=== PATIENT | male | born 1955 | race Caucasian/White ===

== ENCOUNTER 2016-07-19 08:14 | Inpatient (IN) ==
--- NOTE | 2016-07-19 08:44 | Emergency Department Note ---
Disposition Clinical Impression: Cerebrovascular accident Qualifiers: CVA mechanism: unspecified Qualified Code(s): I63.9 - Cerebral infarction, unspecified Disposition: Admitted As Inpatient Condition: Fair Time of Disposition: 10:46 Neuro HPI - General Chief Complaint: ED Neuro Symptoms/Deficit Stated Complaint: neuro symptoms since yesterday afternoon Time Seen by Provider: 07/19/16 08:23 Source: patient, family Limitations: no limitations Nursing Notes Reviewed: Yes Vital Signs Reviewed: Yes - History of Present Illness HPI Narrative: Patient is a 60-year-old male who presents to [facility] ED with a chief complaint of left-sided facial droop and mild slurred speech. His is a nurse here who states prior to her going to work last night, she noticed a little bit of a facial droop and slurred speech. The patient himself did not feel that he had any at the time. However he did wake up this morning and thought he started noticing some facial droop as well as slurred speech as well. Denies any nausea, vomiting, fever or chills. Patient states he feels pretty good and has not had any recent illnesses. No prior history of TIAs or strokes. No prior cardiac history. His only medication is enalapril for hypertension. Onset of Symptoms Date: 07/18/16 Timing confirmed by: spouse Location: left face History of same: No Severity: mild Symptoms Improving: No Improves with: none Worsens with: none Context: gradual onset Associated symptoms: Reports: denies other symptoms. Denies: chest pain, cough , diaphoresis, fever/chills, headaches, loss of appetite, nausea/vomiting, shortness of breath, weakness Treatments Prior to Arrival: none - Related Data Home Medications: Home Medications Medication Instructions Recorded Confirmed Enalapril Maleate [Vasotec] 20 mg PO DAILY 07/19/16 07/19/16 Ibuprofen [Advil] 200 mg PO Q6H PRN 07/19/16 07/19/16 [place]-3/Dha/Epa/Fish Oil [Fish Oil 1 each PO DAILY 07/19/16 07/19/16 1,000 mg Softgel] Taurine [Pure Taurine] 500 mg PO DAILY 07/19/16 07/19/16 Allergies/Adverse Reactions: Allergies Allergy/AdvReac Type Severity Reaction Status Date / Time No Known Allergies Allergy Verified 07/19/16 08:16 All systems ED: reviewed and negative except as stated. Past Medical History - Past Medical History Attestation: Yes The following information was validated with the patient. Source: patient Medical history: Reports: hypertension - Social History Smoking Status: Never smoker Alcohol use: Reports: occasionally, recent Drug use: Reports: none Physical Exam - General Limitations: no limitations General appearance: alert, in no apparent distress - Head Head exam: atraumatic, normocephalic, normal inspection - Eye Eye exam: Present: normal appearance, PERRL, EOMI - ENT ENT exam: normal exam, normal oropharynx, mucous membranes moist - Neck Neck exam: Present: normal inspection, full ROM, trachea midline - Chest Chest inspection: Present: normal inspection, symmetric chest wall rise - Respiratory Respiratory exam: Present: normal lung sounds bilaterally - Cardiovascular Cardiovascular exam: Present: regular rate, normal rhythm, normal heart sounds - Abdominal Exam Abdominal exam: Present: soft, Non-Tender. Absent: tenderness, distention, guarding, rebound, rigidity - Extremities Exam Extremities exam: Present: normal inspection, full ROM. Absent: tenderness, pedal edema - Back Exam Back exam: Present: normal inspection, full ROM. Absent: tenderness - Neurological Exam Neurological exam: Present: alert, oriented X3 - Expanded Neurological Exam Patient oriented to: Present: person, place, time Speech: Present: fluid speech Cranial nerves: EOM function (II, III, IV, ): Normal, facial sensation (V): Normal, facial palsy (VII): Abnormal Left, spinal accessory function (XI): Normal, tongue deviation (XII): Normal Cerebellar function: finger to nose: Normal, heel to harman: Normal Cerebellar function: normal gait Motor strength - LUE: 5/5 Motor strength - RUE: 5/5 Motor strength - LLE: 5/5 Motor strength - RLE: 5/5 Upper motor neuron exam: elisabeth neglect: Absent bilaterally, pronator drift: Absent bilaterally, sensory extinction: Absent bilaterally Sensory exam upper extremity: light touch: Normal Sensory exam lower extremity: light touch: Normal Coma Scale Eye Opening: Spontaneous Coma Scale Motor Response: Obeys Commands Coma Scale Verbal Response: Oriented Coma Scale Total: 15 - Psychiatric Psychiatric exam: Present: normal affect, normal mood - Skin Skin exam: Present: warm, dry, intact, normal color Course Course Narrative: Patient seen and examined. Complaints of left-sided facial droop and mild slurred speech. Time of exact onset unknown. They noticed this yesterday evening over 12 hours ago. NIH score 2 for those 2 symptoms. There is a possibility this could be an early Deleon's palsy, however it is forehead sparing. We will go ahead and work this up as possible stroke/TIA. - Reevaluation(s) Reevaluation #1: I received a call from the radiologist who states he does see a small area of acute ischemia involving the right frontal lobe near the sylvian fissure. Labwork unremarkable. We will admit for CVA workup. I spoke with neurologist Dr. Elaine who will see the patient in consult. He would like patient to have a daily aspirin. I spoke with hospitalist Dr. Cage who has accepted patient for admission. Time: 10:44 Vital Signs Temperature 98.2 F 07/19/16 08:15 Pulse Rate 75 07/19/16 08:15 Respiratory Rate 18 07/19/16 08:15 Blood Pressure 186/97 07/19/16 08:15 O2 Sat by Pulse Oximetry 99 07/19/16 08:15 Temperature 98.4 F 07/19/16 13:36 Pulse Rate 62 07/19/16 13:36 Respiratory Rate 16 07/19/16 13:36 Blood Pressure 151/84 07/19/16 13:36 O2 Sat by Pulse Oximetry 96 07/19/16 13:49 Oxygen Delivery Oxygen Delivery Room Air Neuro Symptoms/Deficit - Medical Records Medical records reviewed: Yes I reviewed the patient's medical records. - Lab Data Lab results reviewed: Yes I reviewed the patient's lab results. Result diagrams: 07/19/16 16:08 07/19/16 09:12 Lab Results 07/19/16 07/19/16 07/19/16 Range/Units 08:28 09:12 09:12 WBC 4.4 (4.3-11.1) K/mcL RBC 4.80 (4.19-5.50) M/mcL Hgb 15.5 (12.9-16.9) g/dL Hct 43.9 (37.5-50.1) % MCV 91.5 (83.0-100.0) fL MCH 32.3 (28.0-33.3) pg MCHC 35.3 (31.6-35.5) g/dL RDW 12.1 (11.5-14.5) % Plt Count 179 (140-400) K/mcL MPV 8.3 L (9.4-12.4) fL Immature Gran % 0.2 (0-4) % Seg Neutrophils % 53.1 % Lymphocytes % 36.7 % Monocytes % 8.6 % Eosinophils % 0.9 % Basophils % 0.5 % Neutrophils # 2.4 (1.6-8.9) K/mcL Lymphocytes # 1.6 (0.6-4.6) K/mcL Monocytes # 0.4 (0.0-1.3) K/mcL Eosinophils # 0.0 (0.0-0.6) K/mcL Basophils # 0.0 (0.0-0.2) K/mcL PT 10.7 (9.4-12.1) Seconds INR 1.0 APTT 28.6 (26.0-36.0) Seconds Sodium (136-145) mEq/L Potassium (3.5-4.5) mEq/L Chloride (98-109) mEq/L Carbon Dioxide (19-29) mEq/L BUN (8-26) mg/dL Creatinine (0.72-1.25) mg/dL Est GFR ( Amer) (> 60) Est GFR (Non-Af Amer) (> 60) BUN/Creatinine Ratio (6-26) Glucose (70-99) mg/dL POC Glucose 101 H (58-89) Est Mean Plasma Glucose mg/dl Hemoglobin A1c ( - 5.6) % Calculated Osmolality (280-300) Calcium (8.6-10.8) mg/dL Troponin I (0-0.03) ng/mL TSH (0.350-4.840) mcIU/mL 07/19/16 07/19/16 07/19/16 Range/Units 09:12 09:12 09:12 WBC (4.3-11.1) K/mcL RBC (4.19-5.50) M/mcL Hgb (12.9-16.9) g/dL Hct (37.5-50.1) % MCV (83.0-100.0) fL MCH (28.0-33.3) pg MCHC (31.6-35.5) g/dL RDW (11.5-14.5) % Plt Count (140-400) K/mcL MPV (9.4-12.4) fL Immature Gran % (0-4) % Seg Neutrophils % % Lymphocytes % % Monocytes % % Eosinophils % % Basophils % % Neutrophils # (1.6-8.9) K/mcL Lymphocytes # (0.6-4.6) K/mcL Monocytes # (0.0-1.3) K/mcL Eosinophils # (0.0-0.6) K/mcL Basophils # (0.0-0.2) K/mcL PT (9.4-12.1) Seconds INR APTT (26.0-36.0) Seconds Sodium 139 (136-145) mEq/L Potassium 4.4 (3.5-4.5) mEq/L Chloride 106 (98-109) mEq/L Carbon Dioxide 25 (19-29) mEq/L BUN 15 (8-26) mg/dL Creatinine 1.03 (0.72-1.25) mg/dL Est GFR ( Amer) > 60 (> 60) Est GFR (Non-Af Amer) > 60 (> 60) BUN/Creatinine Ratio 15 (6-26) Glucose 109 H (70-99) mg/dL POC Glucose (58-89) Est Mean Plasma Glucose 105 mg/dl Hemoglobin A1c 5.3 ( - 5.6) % Calculated Osmolality 289 (280-300) Calcium 10.1 (8.6-10.8) mg/dL Troponin I 0.02 (0-0.03) ng/mL TSH 1.844 (0.350-4.840) mcIU/mL 07/19/16 07/19/16 Range/Units 16:08 16:08 WBC 5.2 (4.3-11.1) K/mcL RBC 4.72 (4.19-5.50) M/mcL Hgb 15.4 (12.9-16.9) g/dL Hct 43.2 (37.5-50.1) % MCV 91.5 (83.0-100.0) fL MCH 32.6 (28.0-33.3) pg MCHC 35.6 H (31.6-35.5) g/dL RDW 12.2 (11.5-14.5) % Plt Count 189 (140-400) K/mcL MPV 8.4 L (9.4-12.4) fL Immature Gran % (0-4) % Seg Neutrophils % % Lymphocytes % % Monocytes % % Eosinophils % % Basophils % % Neutrophils # (1.6-8.9) K/mcL Lymphocytes # (0.6-4.6) K/mcL Monocytes # (0.0-1.3) K/mcL Eosinophils # (0.0-0.6) K/mcL Basophils # (0.0-0.2) K/mcL PT 11.3 (9.4-12.1) Seconds INR 1.0 APTT 27.8 (26.0-36.0) Seconds Sodium (136-145) mEq/L Potassium (3.5-4.5) mEq/L Chloride (98-109) mEq/L Carbon Dioxide (19-29) mEq/L BUN (8-26) mg/dL Creatinine (0.72-1.25) mg/dL Est GFR ( Amer) (> 60) Est GFR (Non-Af Amer) (> 60) BUN/Creatinine Ratio (6-26) Glucose (70-99) mg/dL POC Glucose (58-89) Est Mean Plasma Glucose mg/dl Hemoglobin A1c ( - 5.6) % Calculated Osmolality (280-300) Calcium (8.6-10.8) mg/dL Troponin I (0-0.03) ng/mL TSH (0.350-4.840) mcIU/mL - Radiology Data Radiology results reviewed: Yes I reviewed the patient's radiology results. Head CT 07/19/16 08:58 IMPRESSION: Findings concerning for small area of acute ischemia involving right frontal lobe towards the region of the sylvian fissure in left MCA distribution. No acute intracranial hemorrhage or midline shift. Area of old infarct/insult to right cerebellar hemisphere. Critical results were called by Dr. Melchor David MD to Елена Ashley on 07/19/2016 at 10:02. D/ / 07/19/2016 10:02:37 Melchor David MD / Kym Garner Interpreting Provider: Melchor David MD - EKG Data EKG attestation: Yes I reviewed and interpreted this EKG. EKG results narrative: EKG done at 826 shows normal sinus rhythm with a rate of [address] elevation or depression. Left axis deviation. Inverted T waves in lead 3. NIH Stroke Scale - Level of Consciousness LOC: Alert - LOC Questions LOC Questions: Answers both correctly - LOC Commands LOC Commands: Performs both correctly - Best Gaze Best Gaze: Normal - Visual Visual: No visual loss - Facial Palsy Facial Palsy: Minor asymmetry on smiling, flattened nasolabial fold - Motor Arms Motor Arm-Left: No drift for 10 seconds Motor Arm-Right: No drift for 10 seconds - Motor Legs Motor Leg-Left: No drift for 5 seconds Motor Leg-Right: No drift for 5 seconds - Limb Ataxia Limb Ataxia: Normal, No Ataxia - Sensory Sensory: Normal - Best Language Best Language: No aphasia - Dysarthria Dysarthria: Mild, slurs some words - Extinction and Inattention Extinction and Inattention: Normal - NIHSS Total Score NIHSS Total Score: 2 Attestation Statement - Attestation Attestation: I, Jason Mendosa, examined this patient and my medical decision-making was reviewed with the CAFETERIA SUPERVISOR/PA/Advanced Practice Nurse/Resident Physician. I agree with the documented findings, disposition and treatment plan as described except to the extent set forth below. 60-year-old male presents with concerns of left facial droop and slurred speech. Patient states his noticed symptoms last night prior to going to bed, he noticed they are still present this morning upon her return from her work shift. Patient has not had a history of CVA in the past. No recent injury or changes in his medications. No recent tick bites. No history of Deleon 's palsy. On physical examination the patient has left lower facial droop and mild slurred speech but does not have any other focal neurologic deficits on exam. CT obtained which shows a mild area of ischemia which could correlate to the patient's symptoms. Resident spoke with the neurologist who agreed with plan for admission to the hospital.
[2016-07-19 09:20] LABS: Basophils % 0.5 %; Eosinophils % 0.9 %; Hematocrit 43.9 % (37.5-50.1); Hemoglobin 15.5 g/dL (12.9-16.9); Immature Granulocytes % 0.2 % (0-4); Lymphocytes # 1.6 K/mcL (0.6-4.6); Lymphocytes % 36.7 %; Mean Corpuscular HGB Conc 35.3 g/dL (31.6-35.5); Mean Corpuscular Hemoglobin 32.3 pg (28.0-33.3); Mean Corpuscular Volume 91.5 fL (83.0-100.0); Mean Platelet Volume 8.3 fL (9.4-12.4); Monocytes # 0.4 K/mcL (0.0-1.3); Monocytes % 8.6 %; Neutrophils # 2.4 K/mcL (1.6-8.9); Platelet Count 179 K/mcL (140-400); Red Cell Distribution Width 12.1 % (11.5-14.5); Segmented Neutrophils % 53.1 %
[2016-07-19 09:26] LABS: Prothrombin Time 10.7 Seconds (9.4-12.1)
[2016-07-19 09:28] LABS: Activated Partial Thrombo Time 28.6 Seconds (26.0-36.0)
[2016-07-19 09:31] LABS: BUN/Creatinine Ratio 15 (6-26); Blood Urea Nitrogen 15 mg/dL (8-26); Calcium 10.1 mg/dL (8.6-10.8); Carbon Dioxide 25 mEq/L (19-29); Chloride 106 mEq/L (98-109); Glucose 109 mg/dL (70-99); Osmolality,Calculated 289 (280-300); Potassium 4.4 mEq/L (3.5-4.5); Sodium 139 mEq/L (136-145); eGFR For African Americans > 60 (> 60); eGFR For Non-African Americans > 60 (> 60)
[2016-07-19] MEDS ORDERED: Aspirin 81 MG TAB.CHEW PO STA (10:09)
[2016-07-19] MEDS ORDERED: Naloxone 0.4 MG/ML INJ IVP PRN (10:53)
--- NOTE | 2016-07-19 11:27 | Internal Med History&Physical ---
<HoustonZackaryPricila J - Last Filed: 07/19/16 12:29> Date of Encounter: 07/19/16 Time of Encounter: 11:27 Assessment and Plan (1) Cerebrovascular accident Current visit: Yes Status: Acute presented with slurred speech and left facial droop that started evening prior to admission. Head CT with small area of acute ischemia to right frontal lobe. Received ASA in ED. Brain MRI, echo, carotid dopplers, TSH, LDL and Hgb A1c pending. Allow for permissive HTN, resume BP medications 07/20/2016. Neurology consulted in ED Qualifiers: CVA mechanism: unspecified Qualified Code(s): I63.9 - Cerebral infarction, unspecified (2) Essential hypertension Current visit: Yes Status: Acute per hx. Holding BP medications to allow for permissive HTN. (3) DVT prophylaxis Current visit: Yes Status: Acute lovenox Internal Medicine - H&P: HPI Chief complaint: left facial droop and slurred speech Plans for Post Hospital Care: Home History of present illness: Mr. Greco is a 60 year old male with PMH HTN who presented to [facility] on 2016 with complaints of left facial droop and slurred speech. Head CT showed and acute infarct and he was admitted for complete CVA work-up. Information obtained from chart review and patient report. Patient tells me his noticed his sx's when he came in from working in the yard. He feels sx's are a little better now. Denies numbness/tingling, no vision changes, no headaches. Past Med Surg Social Fam HX - Past Medical History Medical history: hypertension - Past Surgical History Surgical History: no surgical history - Social History Smoking Status: Never smoker Alcohol use: occasionally, recent Drug use: none - Family History Father Hx Family Neurologic Disorders: Yes (CVA) Mother Hx Family Neuromuscular Disorders: Yes (CVA) Internal Medicine - H&P: Meds Enalapril Maleate [Vasotec] 20 mg PO DAILY 07/19/16 [History] Ibuprofen [Advil] 200 mg PO Q6H PRN 07/19/16 [History] [place]-3/Dha/Epa/Fish Oil [Fish Oil 1,000 mg Softgel] 1 each PO DAILY 07/19/16 [ History] Taurine [Pure Taurine] 500 mg PO DAILY 07/19/16 [History] Allergies No Known Allergies Allergy (Verified 07/19/16 08:16) All Systems PM: A 10-system review of systems was performed and is negative for pertinent findings except as documented above in the HPI. - Constitutional Constitutional: no chills, no fever(s), no night sweats - EENT Eyes: no change in vision, no discharge, no pain, no photophobia Ears: no ear discharge, no ear pain, no tinnitus Nose, mouth and throat: no dysphagia, no nasal discharge, no neck pain, no sore throat - Cardiovascular Cardiovascular ROS IM: no chest pain, no diaphoresis, no dyspnea, no lightheadedness, no palpitations, no syncope - Respiratory Respiratory: no cough, no dyspnea, no wheezing, no excessive phlegm production - Gastrointestinal Gastrointestinal: no abdominal pain, no diarrhea, no hematemesis, no hematochezia, no melena, no nausea, no vomiting - Musculoskeletal Musculoskeletal ROS IM: no numbness, no tingling - Integumentary Integumentary IM: no rash, no unusual bruising - Neurological Neurological ROS: no confusion, no convulsions, no focal weakness, no headache(s ), no numbness, no tingling, no tremor(s) Additional comments: slurred speech - Hematologic/Lymphatic Hematologic/Lymphatic: no easy bruising - Constitutional Vitals: Temp Pulse Resp BP Pulse Ox 98.2 F 79 16 151/77 96 07/19/16 08:15 07/19/16 10:46 07/19/16 10:46 07/19/16 10:46 07/19/16 10:46 General appearance: Present: A&O X 3, no acute distress - Head Head exam: Present: atraumatic, normocephalic - Eye Eye exam: Present: PERRL, conjuntiva pink, sclera anicteric Pupils: Present: PERRL - Neck Neck exam general surgery: Present: supple, trachea midline. Absent: lymphadenopathy - Respiratory Respiratory exam: Present: CTAB. Absent: accessory muscle use, rales, rhonchi, wheezes - Cardiovascular Cardiovascular exam: Present: RRR, +S1, +S2. Absent: diastolic murmur, gallop, rubs, systolic murmur - GI/Abdominal GI/Abdominal exam: Present: normal bowel sounds, soft, no peritoneal signs. Absent: distended, tenderness - Extremities Exam Extremities exam: Present: warm, radial pulses palpable and symetrical. Absent : calf tenderness, cyanotic, pedal edema - Neurological Exam Neurological exam: Present: CN II-XII intact, oriented X3, no focal deficits. Absent: pronater drift, facial droop, speech deficit Additional comments: left facial droop - Expanded Neurological Exam Speech: Present: slurred Coma Scale Eye Opening: Spontaneous Coma Scale Motor Response: Obeys Commands Coma Scale Verbal Response: Oriented Coma Scale Total: 15 - Skin Skin exam: Present: dry, intact Internal Med - H&P Results - Labs CBC & Chem 7: 07/19/16 09:12 07/19/16 09:12 <Katharina Lovelace E - Last Filed: 07/19/16 12:43> Date of Encounter: 07/19/16 Internal Medicine - H&P: HPI History of present illness: Mr. Greco is a 60 year old male All Systems PM: A 10-system review of systems was performed and is negative for pertinent findings except as documented above in the HPI. - Constitutional Vitals: Temp Pulse Resp BP Pulse Ox 98.2 F 72 17 145/88 95 07/19/16 08:15 07/19/16 12:22 07/19/16 12:22 07/19/16 12:22 07/19/16 12:22 Internal Med - H&P Results - Labs CBC & Chem 7: 07/19/16 09:12 07/19/16 09:12 - Impressions ITS Impressions Brain MRI 07/19/16 11:21 IMPRESSION: 1. There are acute infarcts noted in the right middle cerebral artery vascular distribution, primarily involving the right insula, as well as the right temporal operculum, right frontal operculum, and deep white matter of the right frontal lobe. 2. Chronic infarcts are noted in the cerebellar hemispheres. 3. Cerebral and cerebellar parenchymal volume loss with mild chronic microvascular white matter ischemic disease noted both supra and infratentorially. D/ / Temo Sadler MD / Temo Sadler MD Interpreting Provider: Temo Sadler MD - Attending Attestation I examined this patient and reviewed laboratory, imaging and all diagnostic data. My medical decision-making was reviewed with Pricila Colon NP. I agree with the documented findings, disposition and treatment plan as described above. History and exam by me shows: minimal left facial droop. delayed speech. no other focal deficit. Bp 186/97. MRI brain positive for acute infarcts in the right middle cerebral artery distribution, primarily involving the right insula , as well as the right temporal operculum, and deep white matter of the right frontal lobe. chronic infarcts in the cerebellar hemispheres. mild chronic microvascular white matter ischemic disease. started on aspirin. echo. doppler of carotids. neuro-checks. telemetry. better BP control at home. Dr Elaine notified in the ED. Speech consulted.
[2016-07-19] MEDS ORDERED: *HR* LORazepam 2 MG/ML VIAL IVP ONE ×2 (11:29→11:45)
[2016-07-19 12:52] LABS: Thyroid Stimulating Hormone 1.844 mcIU/mL (0.350-4.840)
[2016-07-19 12:54] LABS: Hemoglobin A1C 5.3 %
[2016-07-19] MEDS ORDERED: Acetaminophen 325 MG TABLET PO PRN (14:28)
[2016-07-19] MEDS ORDERED: Heparin 25,000 UNIT/500 ML D5W 25,000 UNIT/500 ML MLS IVC SCH (15:30)
--- NOTE | 2016-07-19 16:05 | Neurology - Consult Note ---
Date of Encounter: 07/19/16 Time of Encounter: 15:59 Assessment and Plan (1) Cerebrovascular accident Current Visit: Yes Status: Acute Patient developed acute onset of left facial droop, consistent with the finding of right temporal lobe acute ischemic infarct, this is within the distribution of right MCA territory and involving the cortex and insula therefore could be embolic or thrombo-embolic in etiology. He has could history of atrial fibrillation but does have history of heart 'flutter' symptoms few years ago. He is a young patient and due to the findings of probable embolic stroke i would recommend SELENA to assess source of emboli. Also noted that this is a very fit individual with BMI of 28 SELENA may provided adequate information therefore will consult compensation consulting manager's input. Will obtain carotid artery duplex, CTA of neck and brain. Will recommned heprin drip while stroke work up is being completed. If SELENA returns negative and no source of emboli can be identified then will discontinue the heparin drip and keep him on aspirin 325mg daily and pursue risk factor modification. Obtain lipid panel and start statin therapy if necessary. Will follow up tomorrow. Qualifiers: CVA mechanism: unspecified Qualified Code(s): I63.9 - Cerebral infarction, unspecified History of Present Illness Chief complaint: left facial droop HPI: Mr. Greco is a 60 year old male with PMH significant for HTN who developed acute onset of left facial droop, more than 24 hours. Patient was noticed to have left facial droop by his yesterday. he did not have any discomforts thought and it was his who noticed the left facial droop and prompted him to go to ER. initial CT of head showed acute infarct at the right medial temporal, insula region. This is confirmed on MRI of brain. Clinically, he has no discomforts Patient has history of HTN and he saw Dr. Placido Doyle who recently increased his enalapril from 10mg to 20 mg daily. Few years ago he developed some 'heart flutter' and had cardiac catheterization. He is currently very active physically. MR/MR head/brain wo con IMPRESSION: 1. There are acute infarcts noted in the right middle cerebral artery vascular distribution, primarily involving the right insula, as well as the right temporal operculum, right frontal operculum, and deep white matter of the right frontal lobe. Past Med Surg Social Fam HX - Past Medical History Medical history: hypertension - Past Surgical History Surgical History: no surgical history - Social History Smoking Status: Never smoker Alcohol use: occasionally, recent Drug use: none - Family History Father Hx Family Neurologic Disorders: Yes (CVA) Mother Hx Family Neuromuscular Disorders: Yes (CVA) Medications and Allergies Enalapril Maleate [Vasotec] 20 mg PO DAILY 07/19/16 [History] Ibuprofen [Advil] 200 mg PO Q6H PRN 07/19/16 [History] [place]-3/Dha/Epa/Fish Oil [Fish Oil 1,000 mg Softgel] 1 each PO DAILY 07/19/16 [ History] Taurine [Pure Taurine] 500 mg PO DAILY 07/19/16 [History] Allergies No Known Allergies Allergy (Verified 07/19/16 08:16) All Systems: A 10-system review of systems was performed and is negative for pertinent findings except as documented above in the HPI. Physical Examination - Vital Signs Vital Signs: Initial Vital Signs Temp Pulse Resp BP Pulse Ox 98.2 F 75 18 186/97 99 07/19/16 08:15 07/19/16 08:15 07/19/16 08:15 07/19/16 08:15 07/19/16 08:15 - Constitutional General appearance: comfortable - Neurologic Detailed motor examination: full strength in all major muscle groups Motor examination - right side: 5/5: deltoids, biceps, triceps, wrist flexion, wrist extension, revenue cycle consultant, hip flexors, tibialis Anterior, quadriceps, toe extension (EHL), plantarflexion Motor examination - left side: 5/5: deltoids, biceps, triceps, wrist flexion, wrist extension, hip flexors, revenue cycle consultant, quadriceps, tibialis Anterior, toe extension (EHL), plantarflexion Mental Status Examination: awake, alert, oriented to person, oriented to place, oriented to time, follows commands appropriately, answers questions appropriately, no agnosia, no aphasia, no aproxia Cranial nerve examination: PERRL, EOMI, visual gamboa intact, corneal reflexes brisk symmetrically, sensory to face intact, mastication intact, no facial asymmetry is present (left facial droop noted, sparing the forehead), no dysarthria, hearing is intact symmetrically, soft palate elevates bilaterally upon phonation, gag reflex intact, flexes SCM and trapezius muscles symmetrically with full power, tongue protrudes midline, no atrophy or facial fasiculations present Cerebellar examination: no dysmetria, performs finger to nose and heel to harman symmetrically without ataxia, no gait ataxia, no truncal ataxia, no difficulty with rapid alternating movements Results - Laboratory Findings CBC and BMP: 07/19/16 09:12 07/19/16 09:12 Abnormal lab findings: Abnormal lab results MPV 8.3 fL (9.4-12.4) L 07/19/16 09:12 Glucose 109 mg/dL (70-99) H 07/19/16 09:12 POC Glucose 101 (58-89) H 07/19/16 08:28 Consult Discharge Plan - Plan Referrals: Placido Doyle MD [Primary Care Provider] -
[2016-07-19 16:15] LABS: Hematocrit 43.2 % (37.5-50.1); Hemoglobin 15.4 g/dL (12.9-16.9); Mean Corpuscular HGB Conc 35.6 g/dL (31.6-35.5); Mean Corpuscular Hemoglobin 32.6 pg (28.0-33.3); Mean Corpuscular Volume 91.5 fL (83.0-100.0); Mean Platelet Volume 8.4 fL (9.4-12.4); Platelet Count 189 K/mcL (140-400); Red Blood Count 4.72 M/mcL (4.19-5.50); Red Cell Distribution Width 12.2 % (11.5-14.5)
[2016-07-19 16:21] LABS: Prothrombin Time 11.3 Seconds (9.4-12.1)
[2016-07-19 16:24] LABS: Activated Partial Thrombo Time 27.8 Seconds (26.0-36.0)
[2016-07-19] MEDS ORDERED: *HR* Heparin 5,000 UNIT/ML VIAL IVP PRN ×2 (23:34)
[2016-07-20] MEDS ORDERED: *HR* Enoxaparin 40 MG/0.4 ML SYRINGE SQ SCH (06:00)
[2016-07-20 06:24] LABS: Alanine Aminotransferase 17 Units/L (0-55); Albumin 3.8 g/dL (3.5-5.0); Albumin/Globulin Ratio 1.2 (1.1-2.2); Alkaline Phosphatase 66 Units/L (38-126); Aspartate Amino Transferase 16 Units/L (5-34); BUN/Creatinine Ratio 15 (6-26); Bilirubin,Total 0.9 mg/dL (0.2-1.2); Blood Urea Nitrogen 15 mg/dL (8-26); Calcium 9.3 mg/dL (8.6-10.8); Carbon Dioxide 22 mEq/L (19-29); Chloride 104 mEq/L (98-109); Chol/HDL Ratio 5.8 (0-4.9); Cholesterol 237 mg/dL (< 200); Globulin 3.2 g/dL (2.4-3.5); Glucose 105 mg/dL (70-99); HDL Cholesterol 41 mg/dL (40-59); LDL Cholesterol,Calculated 165 mg/dL (0-99); Osmolality,Calculated 281 (280-300); Potassium 3.8 mEq/L (3.5-4.5); Sodium 135 mEq/L (136-145); Triglycerides 155 mg/dL (< 150); eGFR For African Americans > 60 (> 60); eGFR For Non-African Americans > 60 (> 60)
[2016-07-20 06:36] LABS: Basophils % 0.4 %; Eosinophils # 0.1 K/mcL (0.0-0.6); Eosinophils % 1.4 %; Hematocrit 43.2 % (37.5-50.1); Hemoglobin 15.2 g/dL (12.9-16.9); Immature Granulocytes % 0.2 % (0-4); Lymphocytes # 1.7 K/mcL (0.6-4.6); Lymphocytes % 34.5 %; Mean Corpuscular HGB Conc 35.2 g/dL (31.6-35.5); Mean Corpuscular Hemoglobin 32.1 pg (28.0-33.3); Mean Corpuscular Volume 91.1 fL (83.0-100.0); Mean Platelet Volume 8.3 fL (9.4-12.4); Monocytes # 0.5 K/mcL (0.0-1.3); Monocytes % 9.9 %; Neutrophils # 2.6 K/mcL (1.6-8.9); Platelet Count 188 K/mcL (140-400); Red Blood Count 4.74 M/mcL (4.19-5.50); Red Cell Distribution Width 12.1 % (11.5-14.5); Segmented Neutrophils % 53.6 %
[2016-07-20] MEDS ORDERED: Aspirin 325 MG TABLET PO SCH (09:00)
--- NOTE | 2016-07-20 09:58 | Neurology Progress Note ---
Date of Encounter: 07/20/16 (follow-up) Time of Encounter: 09:53 Assessment and Plan (1) Cerebrovascular accident Current Visit: Yes Status: Acute Stroke, right hemisphere, insular region, right MCA M2 distribution small vessel occlusion, likely atherothrombus. Risk factors include high BP and high cholesterol. Has prior history of flutter. On ASA and heparin now, waiting SELENA results to see if the clot may have propagated from the heart. If that is the case, he would have to be on anticoagulation. He has had Echo done, not read yet. He would need heart monitoring given his prior history of flutter. His examination is better, compared to yesterday. He passed the swallow test today. Qualifiers: CVA mechanism: embolism Precerebral and cerebral artery: middle cerebral artery Laterality of affected vessel: right Qualified Code(s): I63.411 - Cerebral infarction due to embolism of right middle cerebral artery Subjective Principal diagnosis: Stroke Interval history: Patient is doing well today. His speech is better, he has been walking around and overall getting better. His swallow is not affected he says. He states that he did not have any chest pain or shortness of breath when he had the facial droop on the evening of . His speech is back to normal. His states that the facial droop is still mildly there. Objective - Constitutional Vitals: Temp Pulse Resp BP Pulse Ox 97.8 F 72 16 136/88 95 07/20/16 07:15 07/20/16 07:15 07/20/16 07:15 07/20/16 07:15 07/20/16 08:19 General appearance: Present: A&O X 3, pleasant, no acute distress - Head Head exam: Present: normocephalic - Eye Eye exam: Present: EOMI, PERRL - Neurological Exam Sensorimotor examination: Present: intact Motor Examination: Present: full strength in all major muscle groups Motor examination - right side: 5/5: deltoids, biceps, triceps, wrist flexion, wrist extension, morning show producer, hip flexors, tibialis Anterior, quadriceps, toe extension (EHL), plantarflexion Motor examination - left side: 5/5: deltoids, biceps, triceps, wrist flexion, wrist extension, hip flexors, morning show producer, quadriceps, tibialis Anterior, toe extension (EHL), plantarflexion Sensation intact: Present: intact Reflex and gait examination: other (mildly hyper-reflexic on the left) Reflexes: Biceps: 2+ (hyper-reflexic on the left), Triceps: 2+ (hyper-reflexic on the left), Brachioradialis: 2+ (hyper-reflexic on the left), Patella: 2+ ( hyper-reflexic on the left), Achilles: 2+ (hyper-reflexic on the left) Mental Status Examination: Present: awake, alert, oriented to person, oriented to place, oriented to time, follows commands appropriately, answers questions appropriately, no agnosia, no aphasia, no aproxia Cranial nerve examination: Present: PERRL, EOMI, visual gamboa intact, corneal reflexes brisk symmetrically, sensory to face intact, mastication intact, no facial asymmetry is present (left facial droop noted, sparing the forehead), no dysarthria, hearing is intact symmetrically, soft palate elevates bilaterally upon phonation, gag reflex intact, flexes SCM and trapezius muscles symmetrically with full power, tongue protrudes midline, no atrophy or facial fasiculations present Cerebellar examination: Present: no dysmetria, performs finger to nose and heel to harman symmetrically without ataxia, no gait ataxia, no truncal ataxia, no difficulty with rapid alternating movements - Expanded Neurological Exam Upper motor neuron: Babinski sign: Abnormal Left (up going toe on the left) Results - Laboratory Findings CBC and BMP: 07/20/16 05:45 07/20/16 05:45 Abnormal lab findings: Abnormal lab results MPV 8.3 fL (9.4-12.4) L 07/20/16 05:45 APTT 90.6 Seconds (26.0-36.0) H D 07/20/16 05:45 Sodium 135 mEq/L (136-145) L 07/20/16 05:45 Glucose 105 mg/dL (70-99) H 07/20/16 05:45 POC Glucose 101 (58-89) H 07/19/16 08:28 Triglycerides 155 mg/dL (< 150) H 07/20/16 05:45 Cholesterol 237 mg/dL (< 200) H 07/20/16 05:45 LDL Cholesterol, Calc 165 mg/dL (0-99) H 07/20/16 05:45 VLDL Cholesterol, Calc 31 mg/dL (< 31) H 07/20/16 05:45 Cholesterol/HDL Ratio 5.8 (0-4.9) H 07/20/16 05:45 - Diagnostic Findings Additional findings: Head CT 07/19/16 08:58 IMPRESSION: Findings concerning for small area of acute ischemia involving right frontal lobe towards the region of the sylvian fissure in right MCA distribution. No acute intracranial hemorrhage or midline shift. Area of old infarct/insult to right cerebellar hemisphere. Critical results were called by Dr. Melchor David MD to Елена Ashley on 07/19/2016 at 10:02. D/ / 07/19/2016 10:02:37 Melchor David MD / Kym Garner Interpreting Provider: Melchor David MD Brain MRI 07/19/16 11:21 IMPRESSION: 1. There are acute infarcts noted in the right middle cerebral artery vascular distribution, primarily involving the right insula, as well as the right temporal operculum, right frontal operculum, and deep white matter of the right frontal lobe. 2. Chronic infarcts are noted in the cerebellar hemispheres. 3. Cerebral and cerebellar parenchymal volume loss with mild chronic microvascular white matter ischemic disease noted both supra and infratentorially. D/ / 07/19/2016 13:23:19 Temo Sadler MD / bcaodell Interpreting Provider: Temo Sadler MD Angiography CT 07/19/16 15:28 IMPRESSION: 1. Redemonstration of low-attenuation in the right frontal opercular region and insular cortex consistent with evolving acute right middle cerebral artery territory infarction. No associated hemorrhage. 2. No hemodynamically significant stenosis or occlusion in the cervical arterial circulation. 3. Severe focal stenosis in the proximal right M2 branch. 4. Otherwise, unremarkable CTA of the head. The findings were sent to the Radiology Results Communication [facility] at 6:44 pm on 07/19/2016to be communicated to a licensed caregiver. D/ / 07/19/2016 18:46:50 Aquilino Francisco MD / aries Interpreting Provider: Aquilino Francisco MD Neck CTA 07/19/16 15:28 IMPRESSION: 1. Redemonstration of low-attenuation in the right frontal opercular region and insular cortex consistent with evolving acute right middle cerebral artery territory infarction. No associated hemorrhage. 2. No hemodynamically significant stenosis or occlusion in the cervical arterial circulation. 3. Severe focal stenosis in the proximal right M2 branch. 4. Otherwise, unremarkable CTA of the head. The findings were sent to the Radiology Results Communication Center at 6:44 pm on 07/19/2016to be communicated to a licensed caregiver. D/ /19/2016 18:46:50 Aquilino Francisco MD / aries Interpreting Provider: Aquilino Francisco MD Consult Discharge Plan - Plan Referrals: Placido Doyle MD [Primary Care Provider] -
[2016-07-20 10:52] VITALS: BP 167/88
--- NOTE | 2016-07-20 11:44 | Discharge Summary ---
Date of Encounter: 07/20/16 Time of Encounter: 11:41 - Discharge Diagnosis (1) Cerebrovascular accident Priority: Primary Status: Acute Qualifiers: CVA mechanism: embolism Precerebral and cerebral artery: middle cerebral artery Laterality of affected vessel: right Qualified Code(s): I63.411 - Cerebral infarction due to embolism of right middle cerebral artery (2) DVT prophylaxis Priority: Secondary Status: Acute (3) Essential hypertension Priority: Secondary Status: Acute - Discharge Medications Prescriptions: Aspirin Enteric Coated [Aspirin EC] 325 mg PO DAILY #30 tablet. Atorvastatin [Lipitor] 40 mg PO HS #30 tablet Home Medications: Enalapril Maleate [Vasotec] 20 mg PO DAILY 07/19/16 [History] Ibuprofen [Advil] 200 mg PO Q6H PRN 07/19/16 [History] [place]-3/Dha/Epa/Fish Oil [Fish Oil 1,000 mg Softgel] 1 each PO DAILY 07/19/16 [ History] Taurine [Pure Taurine] 500 mg PO DAILY 07/19/16 [History] Aspirin Enteric Coated [Aspirin EC] 325 mg PO DAILY #30 tablet. 07/20/16 [Rx] Atorvastatin [Lipitor] 40 mg PO HS #30 tablet 07/20/16 [Rx] Allergies/Adverse Reactions: Allergies No Known Allergies Allergy (Verified 07/19/16 08:16) Procedures/tests Complete & Pending: Procedures Performed prior 72 hours Category Date Time Status EV SELENA transesophageal echo Routine Y 07/20/16 07:47 Stop Req Date of admission: 07/19/16 18:13 Primary care physician: Placido Doyle MD Discharging clinician: Gordo Pearl Anticipated date of discharge: 07/20/16 - Patient Status Disposition: Home, Self-Care Condition: Fair Functional capacity at discharge: independent ambulation Overall status at discharge: patient is back to baseline - Discharge Instructions Follow Up With: Placido Doyle MD [Primary Care Provider] - Additional Instructions: Stroke team follow up Holter monitor follow up. - Diet and Activity Activity: as per physical therapy Diet: low fat, low cholesterol Interval History: As per HPI: Mr. Greco is a 60 year old male with PMH HTN who presented to [facility] on 2016 with complaints of left facial droop and slurred speech. Head CT showed and acute infarct and he was admitted for complete CVA work-up. Information obtained from chart review and patient report. Patient tells me his noticed his sx's when he came in from working in the yard. He feels sx's are a little better now. Denies numbness/tingling, no vision changes, no headaches. Hospital course: Mr. Greco is a 60 year old male admitted due to ishcemic CVA. Stroke, right hemisphere, insular region, right MCA M2 distribution small vessel occlusion, likely atherothrombus. Risk factors include high BP and high cholesterol. Patient and his denied history of fluter or any cardiac workup prior. Patient had TTE, report essentially unremarkable. Patient and his informed in detail about findings. I discussed the case with the neurologist, Dr. Olmstead , his impression is that CVA is consequence of carotid disease. In this setting his recommendation was to arrange for a holter monitor placement and follow up as outaptient by stroke team for possible outpatient SELENA if warrnted. No anticoagulation for now, continue aspirin and statins. D/W patient and his in detail, they agreed. - Time Spent with Patient Total time spent providing and/or coordinating discharge services: - Constitutional Vitals: Temp Pulse Resp BP Pulse Ox 98 F 62 16 167/88 97 07/20/16 10:50 07/20/16 10:50 07/20/16 10:50 07/20/16 10:50 07/20/16 10:50 General appearance: Present: A&O X 3, no acute distress - Head Head exam: Present: atraumatic, normocephalic - Eye Eye exam: Present: PERRL, conjuntiva pink, sclera anicteric Pupils: Present: PERRL - Neck Neck exam general surgery: Present: supple, trachea midline. Absent: lymphadenopathy - Respiratory Respiratory exam: Present: CTAB. Absent: accessory muscle use, rales, rhonchi, wheezes - Cardiovascular Cardiovascular exam: Present: RRR, +S1, +S2. Absent: diastolic murmur, gallop, rubs, systolic murmur - GI/Abdominal GI/Abdominal exam: Present: normal bowel sounds, soft, no peritoneal signs. Absent: distended, tenderness - Extremities Exam Extremities exam: Present: warm, radial pulses palpable and symetrical. Absent : calf tenderness, cyanotic, pedal edema - Neurological Exam Neurological exam: Present: CN II-XII intact, oriented X3, no focal deficits. Absent: pronater drift, facial droop, speech deficit - Skin Skin exam: Present: dry, intact
--- NOTE | 2016-07-20 15:35 | Carotid Imaging Report ---
Carotid Duplex Patient Name:Gaurang Greco Order Number:[id number] Procedure Date:07/19/2016 Date:5Age:60 yrs Gender:Male Lt BP:151 / 84 mmHg Rt.BP:151 / 84 mmHgHeart Rate: Location:[facility] Room #: Fine Arts Model:Vani Matson Referring MD:Pricila Conrad VACUUM CLEANER OPERATOR relief manager:Placido Doyle MD Reading MD:Richy Fontaine MD Primary Indications:TIA Risk Factors Yes/No Hypertension Hx of TIA Hx of CVA Smoker Previous Family History Impressions: The bilateral carotid arteries have minimal plaque throughout. Findings Carotid Duplex: Right: There is nonstenotic plaque in the right bifurcation. There is calcified plaque. There is nonstenotic plaque in the right proximal internal carotid artery. There is smooth heterogeneous plaque. Left: There is nonstenotic plaque in the left bifurcation. There is calcified plaque. There is nonstenotic plaque in the left proximal internal carotid artery. There is smooth heterogeneous plaque. Prior Study: No prior study available for comparison. Carotid Results Right PSV EDV Assessment Proximal CCA 100 24 Normal Mid CCA 84 24 Normal Distal CCA 73 20 Normal Bifurcation 84 27 Non Stenotic Plaque Proximal ICA 76 23 Non Stenotic Plaque Mid ICA 79 34 Normal Distal ICA 74 32 Normal ECA 105 22 Normal Vertebral Artery 35 11 Antegrade Flow Left PSV EDV Assessment Proximal CCA 154 24 Normal Mid CCA 84 23 Normal Distal CCA 85 25 Normal Bifurcation 94 25 Non Stenotic Plaque Proximal ICA 89 24 Non Stenotic Plaque Mid ICA 80 28 Normal Distal ICA 79 36 Normal ECA 80 15 Normal Vertebral Artery 44 14 Antegrade Flow Ratio's Right ICA/CCA Ratio: 0.94 ICA/CCA Values: 79/84 Left ICA/CCA Ratio: 1.06 ICA/CCA Values: 89/84 Updated by Richy Fontaine MD on 07/20/2016 3:29:12 PM electronically signed on 07/20/2016 3:29:33 PM with status of Final
--- NOTE | 2016-07-21 08:38 | Electrocardiograph Report ---
[facility] [employer] [facility] Test Date: 2016-07-19 Pat Name: Gaurang Greco Department: 105 Room: 2NE25 Gender: M [employer]ator: : 1955 Requested By: Jason Mendosa Order Number: [id number] Reading MD: Tin Yip MD Measurements Intervals [place] Rate: 88 P: 27 AR: 138 QRS: -1 QRSD: 100 T: 4 QT: 350 QTc: 395 Interpretive Statements SINUS RHYTHM Electronically Signed On 07-21-2016 8:37:21 EDT by Tin Yip MD
== END 2016-07-20 14:23 | disposition home or self-care (01) | DRG 66 ==
LOC: EMEROO 08:14 → 2NENU 08:14
PROVIDERS: ADMIT Internal Medicine; ATTEND Internal Medicine

== ENCOUNTER 2016-07-20 15:35 | Observation (INO) ==
[2016-07-20] MEDS ORDERED: *HR* Labetalol 20 MG/4 ML SYRINGE IVP ONE (15:53)
--- NOTE | 2016-07-20 16:06 | Emergency Department Note ---
Disposition Clinical Impression: Dysarthria Disposition: Admitted As Inpatient Condition: Good Time of Disposition: 19:02 Neuro HPI - General Chief Complaint: ED Neuro Symptoms/Deficit Stated Complaint: Poss Stroke Time Seen by Provider: 07/20/16 15:40 Source: patient Mode of arrival: ambulatory Limitations: no limitations Nursing Notes Reviewed: Yes Vital Signs Reviewed: Yes - History of Present Illness HPI Narrative: Mr. Greco, a 60yo male, presents from home by POV with concerns over slurred speech. Onset 3 PM today. Duration 2-3 minutes. Spontaneous resolved and he is now at baseline. Patient was in his kitchen getting a drink of Gatorade and had just taken his antihypertensive medication when these symptoms began. Patient's was beside him. She did not visualize any unusual drooping of his face or eyelids. Patient denies any confusion, difficulty word finding, unilateral weakness, generalized weakness, chest pains, palpitations, dyspnea, diaphoresis during this episode. It spontaneously resolved. Patient and agree that he is at baseline. Patient was discharged from this facility late this morning after an overnight stay for workup of TIA. His symptoms for that admission were dysarthria and left-sided facial droop onset . He presented Friday and was admitted overnight and discharged this morning after full workup; he was a systematic at time of discharge. ROS: Positive: Transient dysarthria now resolved. Negative: Facial droop, ptosis, dysphagia, aphasia, confusion, chest pains, dyspnea, diaphoresis, back pains, headache, changes in vision, ataxia, any weakness or paresthesias. Patient discharged this morning after admission for ischemic CVA-right hemisphere, insular region, right MCA M2 distribution small vessel occlusion. Documentation made mention of cardiac dysrhythmia however patient denied this and has never had a cardiac workup prior to his previous admission. Transthoracic echo 07/19/16 showed LVEF 60-65% with no valvular abnormalities and no dysrhythmias. Carotid Doppler of 07/19/16 showed minimal plaques throughout. Neurology postulated his occlusion could have come from carotid plaque however also recommended transesophageal echo to evaluate possible cardiac source. - Related Data Home Medications: Home Medications Medication Instructions Recorded Confirmed Enalapril Maleate [Vasotec] 20 mg PO DAILY 07/19/16 07/19/16 Ibuprofen [Advil] 200 mg PO Q6H PRN 07/19/16 07/19/16 [place]-3/Dha/Epa/Fish Oil [Fish Oil 1 each PO DAILY 07/19/16 07/19/16 1,000 mg Softgel] Taurine [Pure Taurine] 500 mg PO DAILY 07/19/16 07/19/16 Previous Rx's Medication Instructions Recorded Aspirin Enteric Coated [Aspirin EC] 325 mg PO DAILY #30 tablet. 07/20/16 Atorvastatin [Lipitor] 40 mg PO HS #30 tablet 07/20/16 Allergies/Adverse Reactions: Allergies Allergy/AdvReac Type Severity Reaction Status Date / Time No Known Allergies Allergy Verified 07/19/16 08:16 All systems ED: reviewed and negative except as stated. Past Medical History - Past Medical History Medical history: Reports: CVA, hypertension Surgical history: Reports: no surgical history Psychiatric history: Reports: no psych history - Social History Smoking Status: Never smoker Smokeless Tobacco Status: No Alcohol use: Reports: occasionally Drug use: Reports: none Physical Exam - General Limitations: no limitations General appearance: alert, in no apparent distress - Head Head exam: atraumatic, normocephalic, normal inspection - Eye Eye exam: Present: normal appearance, PERRL, EOMI - ENT ENT exam: normal oropharynx, mucous membranes moist, normal external ear exam - Neck Neck exam: Present: normal inspection, full ROM, trachea midline. Absent: tenderness, meningismus - Chest Chest inspection: Present: normal inspection, symmetric chest wall rise. Absent : tenderness - Respiratory Respiratory exam: Present: normal lung sounds bilaterally. Absent: respiratory distress, wheezes, stridor, accessory muscle use, prolonged expiratory phase - Cardiovascular Cardiovascular exam: Present: normal rhythm, normal heart sounds. Absent: regular rate, systolic murmur, diastolic murmur - Abdominal Exam Abdominal exam: Present: soft, Non-Tender, normal bowel sounds. Absent: distention, guarding, rebound - Extremities Exam Extremities exam: Present: normal inspection, full ROM, normal capillary refill - Expanded Lower Extremity Exam Neurovascular/Tendon exam: Present: normal capillary refill. Absent: pulse deficit, motor deficit, sensory deficit, tendon deficit, foot drop Gait: observed and normal - Neurological Exam Neurological exam: Present: alert, oriented X3, CN II-XII intact, normal gait. Absent: motor sensory deficit - Expanded Neurological Exam Patient oriented to: Present: person, place, time Speech: Present: fluid speech Cranial nerves: EOM function (II, III, IV, ): Normal, facial sensation (V): Normal, facial palsy (VII): Normal, spinal accessory function (XI): Normal, tongue deviation (XII): Normal Cerebellar function: heel to harman: Normal Cerebellar function: normal gait Motor strength - LUE: 5/5 Motor strength - RUE: 5/5 Motor strength - LLE: 5/5 Motor strength - RLE: 5/5 Upper motor neuron exam: elisabeth neglect: Absent bilaterally, pronator drift: Absent bilaterally, sensory extinction: Absent bilaterally Sensory exam upper extremity: light touch: Normal Sensory exam lower extremity: light touch: Normal Coma Scale Eye Opening: Spontaneous Coma Scale Motor Response: Obeys Commands Coma Scale Verbal Response: Oriented Coma Scale Total: 15 - Psychiatric Psychiatric exam: Present: normal affect, normal mood - Skin Skin exam: Present: warm, dry, intact, normal color Course Course Narrative: I was with this patient as he was brought into the room. He ambulated without difficulty from the wheelchair to the bed. Per patient and he is asymptomatic at this time. My initial evaluation, he has no focal neurologic deficits and NIH SS is 0. Dr. Pearl, the discharging hospitalist, happened to be in the department and we discussed the patient with him. He was able to provide additional detail into the patient's recent hospital stay. Patient's blood pressure on arrival is 175/110. Patient's BP is improving without administration of labetolol. Prior to arrival, patient did take 1/2 dose of his home antihypertensive. 17:30 He remains comfortable and asymptomatic. He is agreeable to coming into the hospital. CT head unchanged from previous; no acute changes. 17:[address] Cage, the admitting hospitalist, who agrees to accept the patient. Vital Signs Temperature 97.8 F 07/20/16 15:39 Pulse Rate 88 07/20/16 15:39 Respiratory Rate 14 07/20/16 15:39 Blood Pressure 175/110 07/20/16 15:39 O2 Sat by Pulse Oximetry 96 07/20/16 15:39 Temperature 97.8 F 07/20/16 15:39 Pulse Rate 67 07/20/16 17:43 Respiratory Rate 14 07/20/16 18:39 Blood Pressure 133/80 07/20/16 18:39 O2 Sat by Pulse Oximetry 95 07/20/16 17:43 Oxygen Delivery Oxygen Delivery Room Air Neuro Symptoms/Deficit - Medical Records Medical records reviewed: Yes I reviewed the patient's medical records. - Lab Data Lab results reviewed: Yes I reviewed the patient's lab results. Result diagrams: 07/20/16 16:18 07/20/16 16:18 Lab Results 07/20/16 07/20/16 07/20/16 Range/Units 16:18 16:18 16:18 WBC 4.5 (4.3-11.1) K/mcL RBC 4.66 (4.19-5.50) M/mcL Hgb 15.1 (12.9-16.9) g/dL Hct 42.1 (37.5-50.1) % MCV 90.3 (83.0-100.0) fL MCH 32.4 (28.0-33.3) pg MCHC 35.9 H (31.6-35.5) g/dL RDW 11.9 (11.5-14.5) % Plt Count 188 (140-400) K/mcL MPV 8.1 L (9.4-12.4) fL Immature Gran % 0.2 (0-4) % Seg Neutrophils % 48.9 % Lymphocytes % 38.6 % Monocytes % 10.8 % Eosinophils % 1.1 % Basophils % 0.4 % Neutrophils # 2.2 (1.6-8.9) K/mcL Lymphocytes # 1.8 (0.6-4.6) K/mcL Monocytes # 0.5 (0.0-1.3) K/mcL Eosinophils # 0.1 (0.0-0.6) K/mcL Basophils # 0.0 (0.0-0.2) K/mcL PT 10.9 (9.4-12.1) Seconds INR 1.0 APTT 27.0 D (26.0-36.0) Seconds Sodium 137 (136-145) mEq/L Potassium 3.2 L (3.5-4.5) mEq/L Chloride 105 (98-109) mEq/L Carbon Dioxide 22 (19-29) mEq/L BUN 17 (8-26) mg/dL Creatinine 1.06 (0.72-1.25) mg/dL Est GFR ( Amer) > 60 (> 60) Est GFR (Non-Af Amer) > 60 (> 60) BUN/Creatinine Ratio 16 (6-26) Glucose 115 H (70-99) mg/dL Calculated Osmolality 286 (280-300) Calcium 9.3 (8.6-10.8) mg/dL Troponin I (0-0.03) ng/mL 07/20/16 Range/Units 16:18 WBC (4.3-11.1) K/mcL RBC (4.19-5.50) M/mcL Hgb (12.9-16.9) g/dL Hct (37.5-50.1) % MCV (83.0-100.0) fL MCH (28.0-33.3) pg MCHC (31.6-35.5) g/dL RDW (11.5-14.5) % Plt Count (140-400) K/mcL MPV (9.4-12.4) fL Immature Gran % (0-4) % Seg Neutrophils % % Lymphocytes % % Monocytes % % Eosinophils % % Basophils % % Neutrophils # (1.6-8.9) K/mcL Lymphocytes # (0.6-4.6) K/mcL Monocytes # (0.0-1.3) K/mcL Eosinophils # (0.0-0.6) K/mcL Basophils # (0.0-0.2) K/mcL PT (9.4-12.1) Seconds INR APTT (26.0-36.0) Seconds Sodium (136-145) mEq/L Potassium (3.5-4.5) mEq/L Chloride (98-109) mEq/L Carbon Dioxide (19-29) mEq/L BUN (8-26) mg/dL Creatinine (0.72-1.25) mg/dL Est GFR ( Amer) (> 60) Est GFR (Non-Af Amer) (> 60) BUN/Creatinine Ratio (6-26) Glucose (70-99) mg/dL Calculated Osmolality (280-300) Calcium (8.6-10.8) mg/dL Troponin I 0.03 (0-0.03) ng/mL - Radiology Data Radiology results reviewed: Yes I reviewed the patient's radiology results. - EKG Data EKG attestation: Yes I reviewed and interpreted this EKG. EKG results narrative: EKG dated 07/20/16 at 15:42 interpreted as sinus rhythm with rate of 86. Normal intervals CA 1:30, QRS 98, QT/QTC 348/391. Q waves in lead 3; present on comparative EKG. [address] depression isolated and V3; not present on comparative EKG. Compared to previous dated 07/19/2016 at 08:26 showing no acute ischemic changes or comparison. NIH Stroke Scale - Level of Consciousness LOC: Alert - LOC Questions LOC Questions: Answers both correctly - LOC Commands LOC Commands: Performs both correctly - Best Gaze Best Gaze: Normal - Visual Visual: No visual loss - Facial Palsy Facial Palsy: Normal - Motor Arms Motor Arm-Left: No drift for 10 seconds Motor Arm-Right: No drift for 10 seconds - Motor Legs Motor Leg-Left: No drift for 5 seconds Motor Leg-Right: No drift for 5 seconds - Limb Ataxia Limb Ataxia: Absent of affected limb too weak to perform exam - Sensory Sensory: Normal - Best Language Best Language: No aphasia - Dysarthria Dysarthria: Normal - Extinction and Inattention Extinction and Inattention: Normal - NIHSS Total Score NIHSS Total Score: 0 - Pupil Exam Bilateral Pupil Reaction: Brisk, Reactive Pupil Size: 3 TPA Checklist - Source Information Source: Patient - Relative Contraindications 19. Only minor or rapidly improving stroke symptoms: Yes - LKW: 3-4.5 hrs Add. Contraindications Patient/family understanding: The patient/family members have been counseled and understood the risk, benefit , and alternatives of treatment. Attestation Statement - Attestation Attestation: I personally interviewed and examined this patient and my medical decision- making was reviewed with the ED Resident Physician, Dr. Rodriguez I agree with the documented findings, disposition and treatment plan as described except to the extent set forth below. Patient is a 60-year-old white male who was just discharged earlier this morning from [facility] following a right MCA acute infarct. Patient had arrived home had gotten something to drink so he can take his blood pressure medicines at home and shortly following taking his blood pressure medicine he began to have an acute episode of slurred speech and dysarthria. Patient's was with him and stated that he did indeed have slurred speech and the symptoms seemed to last for about 2-3 minutes and then improved to complete resolution. Patient experienced slurred speech and left-sided facial drooping on his initial presentation for his right MCA infarct. Patient had a thorough workup here including CT imaging of the brain and neck, carotid Dopplers, echo, and was taken off heparin as an inpatient today converted aspirin and discharged home. On arrival to the ED patient with complete resolution of symptoms and asymptomatic on arrival. NIH score on arrival and was 0 patient has just subtle droop of the left corner of the mouth that is present for insists that this is from his initial stroke. Patient denies any symptoms no chest pain no shortness of breath, no abdominal pain, no back or flank pain, dizziness or vertigo, no visual changes and no extremity weakness or numbness. I agree with physical exam is documented. Patient was placed on gambling monitor continuous pulse ox IV saline while was established and labs were drawn and sent we will repeat CT imaging of the brain to rule out any acute change. Patient's initial blood pressure was high but on repeat testing his blood pressure has come down nicely without medication intervention. Currently patient resting comfortably and asymptomatic while continue evaluation. Patient's CT shows no hemorrhagic transformation and stable changes relative to recent MCA infarct. Chest x-ray is clear. Labs are within normal limits. Patient remained seems to be stable with a stable blood pressure and asymptomatic. Serial neuro exams have remained unchanged. We will discuss with hospitalist.
[2016-07-20 16:33] LABS: Basophils % 0.4 %; Eosinophils # 0.1 K/mcL (0.0-0.6); Eosinophils % 1.1 %; Hematocrit 42.1 % (37.5-50.1); Hemoglobin 15.1 g/dL (12.9-16.9); Immature Granulocytes % 0.2 % (0-4); Lymphocytes # 1.8 K/mcL (0.6-4.6); Lymphocytes % 38.6 %; Mean Corpuscular HGB Conc 35.9 g/dL (31.6-35.5); Mean Corpuscular Hemoglobin 32.4 pg (28.0-33.3); Mean Corpuscular Volume 90.3 fL (83.0-100.0); Mean Platelet Volume 8.1 fL (9.4-12.4); Monocytes # 0.5 K/mcL (0.0-1.3); Monocytes % 10.8 %; Neutrophils # 2.2 K/mcL (1.6-8.9); Platelet Count 188 K/mcL (140-400); Red Blood Count 4.66 M/mcL (4.19-5.50); Red Cell Distribution Width 11.9 % (11.5-14.5); Segmented Neutrophils % 48.9 %
[2016-07-20 16:41] LABS: Prothrombin Time 10.9 Seconds (9.4-12.1)
[2016-07-20 16:48] LABS: BUN/Creatinine Ratio 16 (6-26); Blood Urea Nitrogen 17 mg/dL (8-26); Calcium 9.3 mg/dL (8.6-10.8); Carbon Dioxide 22 mEq/L (19-29); Chloride 105 mEq/L (98-109); Glucose 115 mg/dL (70-99); Osmolality,Calculated 286 (280-300); Potassium 3.2 mEq/L (3.5-4.5); Sodium 137 mEq/L (136-145); eGFR For African Americans > 60 (> 60); eGFR For Non-African Americans > 60 (> 60)
[2016-07-20] MEDS ORDERED: Naloxone 0.4 MG/ML INJ IVP PRN (18:46)
[2016-07-20] MEDS ORDERED: Ondansetron 4 MG/2 ML VIAL IVP PRN (18:46)
[2016-07-20] MEDS ORDERED: *HR* HYDROcodone/Acet 5/325 mg TABLET PO PRN (18:46)
[2016-07-20] MEDS ORDERED: Acetaminophen 325 MG TABLET PO PRN (18:46)
--- NOTE | 2016-07-20 18:58 | Internal Med History&Physical ---
Date of Encounter: 07/20/16 Time of Encounter: 18:00 Assessment and Plan (1) Cerebrovascular accident Current visit: No Status: Acute Admitted on 07/19/2016 with complaints of acute onset of left facial droop and slurred speech. He was diagnosed with acute ischemic CVA (MRI showed acute infarct in the right MCA distribution) and went home on aspirin. At discharge, he had minimal left facial droop only, no other neurologic deficit. At home, he drank a gatorade, then took his enalapril 10 mg and went to the bathroom. When he looked at the mirror he saw his left face drooping more so he found his and she noticed he was again having slurred speech. His symptoms lasted a few minutes and when assessed in our ED, his slurred speech had resolved. BP on arrival was 175/110. repeat CT head showed dubacute infarct in the posterior right frontal lobe in the MCA distribution, no hemorrhage. He only has left facial droop. BP now is 130/91. continue BP control for SBP < 130. radiation monitor. aspirin. statin. neurochecks. consult neurology. 07/19: echocardiogram LVEF 60%. unremarkable doppler of carotids. Qualifiers: CVA mechanism: embolism Precerebral and cerebral artery: middle cerebral artery Laterality of affected vessel: right Qualified Code(s): I63.411 - Cerebral infarction due to embolism of right middle cerebral artery (2) Dysarthria Current visit: Yes Status: Resolved plan as above. (3) Essential hypertension Current visit: Yes Status: Chronic BP on arrival 175/110. patient only took 10 mg of enalapril at home. give 10 mg at bedtime and resume home dose of 20 mg daily in AM. close monitor. BP goal is SBP<130. Internal Medicine - H&P: HPI Chief complaint: slurred speech Admitted From: Home Plans for Post Hospital Care: Home History of present illness: Mr. Greco is a 60 year old male with past medical history of HTN who was admitted on 07/19/2016 with complaints of acute onset of left facial droop and slurred speech. He was diagnosed with acute ischemic CVA (MRI showed acute infarct in the right MCA distribution) and went home on aspirin. At discharge, he had minimal left facial droop only, no other neurologic deficit. At home, he drank a gatorade, then took his enalapril 10 mg and went to the bathroom. When he looked at the mirror he saw his left face drooping more so he found his and she noticed he was having again slurred speech. His symptoms lasted a few minutes and when assessed in our ED, his slurred speech had resolved. Past Med Surg Social Fam HX - Past Medical History Medical history: CVA, hypertension Psychiatric history: no psych history - Past Surgical History Surgical History: no surgical history - Social History Smoking Status: Never smoker Smokeless Tobacco Status: No Alcohol use: occasionally Drug use: none - Family History Father Hx Family Neurologic Disorders: Yes (CVA) Mother Hx Family Neuromuscular Disorders: Yes (CVA) Internal Medicine - H&P: Meds Enalapril Maleate [Vasotec] 20 mg PO DAILY 07/19/16 [History] Ibuprofen [Advil] 200 mg PO Q6H PRN 07/19/16 [History] [place]-3/Dha/Epa/Fish Oil [Fish Oil 1,000 mg Softgel] 1 each PO DAILY 07/19/16 [ History] Taurine [Pure Taurine] 500 mg PO DAILY 07/19/16 [History] Aspirin Enteric Coated [Aspirin EC] 325 mg PO DAILY #30 tablet. 07/20/16 [Rx] Atorvastatin [Lipitor] 40 mg PO HS #30 tablet 07/20/16 [Rx] Allergies No Known Allergies Allergy (Verified 07/19/16 08:16) All Systems PM: A 10-system review of systems was performed and is negative for pertinent findings except as documented above in the HPI. - Constitutional Vitals: Temp Pulse Resp BP Pulse Ox 97.8 F 67 14 133/80 95 07/20/16 15:39 07/20/16 17:43 07/20/16 18:39 07/20/16 18:39 07/20/16 17:43 General appearance: Present: cooperative, A&O X 3, pleasant, no acute distress - Eye Eye exam: Present: PERRL, sclera anicteric - Neck Neck exam general surgery: Present: supple, trachea midline. Absent: lymphadenopathy - Respiratory Respiratory exam: Present: CTAB - Cardiovascular Cardiovascular exam: Present: RRR - GI/Abdominal GI/Abdominal exam: Present: normal bowel sounds, soft, tenderness. Absent: distended - Extremities Exam Extremities exam: Absent: pedal edema - Back Exam Back exam: Absent: CVA tenderness (L), CVA tenderness (R) - Neurological Exam Neurological exam: Present: alert, motor sensory deficit, normal gait, oriented X3, no focal deficits, strengths equal and symetr throughout, facial droop ( left facial droop). Absent: pronater drift, speech deficit - Skin Skin exam: Absent: rash Internal Med - H&P Results - Labs CBC & Chem 7: 07/20/16 16:18 07/20/16 16:18
[2016-07-21 04:13] LABS: Basophils % 0.4 %; Eosinophils # 0.1 K/mcL (0.0-0.6); Eosinophils % 1.6 %; Hematocrit 42.2 % (37.5-50.1); Hemoglobin 14.5 g/dL (12.9-16.9); Immature Granulocytes % 0.4 % (0-4); Lymphocytes # 1.9 K/mcL (0.6-4.6); Lymphocytes % 38.8 %; Mean Corpuscular HGB Conc 34.4 g/dL (31.6-35.5); Mean Corpuscular Hemoglobin 31.8 pg (28.0-33.3); Mean Corpuscular Volume 92.5 fL (83.0-100.0); Mean Platelet Volume 8.3 fL (9.4-12.4); Monocytes # 0.5 K/mcL (0.0-1.3); Monocytes % 10.1 %; Neutrophils # 2.4 K/mcL (1.6-8.9); Platelet Count 192 K/mcL (140-400); Red Blood Count 4.56 M/mcL (4.19-5.50); Red Cell Distribution Width 12.1 % (11.5-14.5); Segmented Neutrophils % 48.7 %
[2016-07-21 04:23] LABS: BUN/Creatinine Ratio 18 (6-26); Blood Urea Nitrogen 17 mg/dL (8-26); Calcium 9.2 mg/dL (8.6-10.8); Carbon Dioxide 23 mEq/L (19-29); Chloride 107 mEq/L (98-109); Glucose 95 mg/dL (70-99); Magnesium 2.3 mg/dL (1.6-2.6); Osmolality,Calculated 289 (280-300); Potassium 4.1 mEq/L (3.5-4.5); Sodium 139 mEq/L (136-145); eGFR For African Americans > 60 (> 60); eGFR For Non-African Americans > 60 (> 60)
[2016-07-21] MEDS: Lisinopril 20 MG TABLET PO SCH (08:16)
[2016-07-21] MEDS: Aspirin 325 MG TABLET PO SCH (08:16)
--- NOTE | 2016-07-21 11:47 | Neurology - Consult Note ---
Date of Encounter: 07/21/16 Time of Encounter: 11:37 Assessment and Plan (1) Cerebral hypoperfusion Current Visit: Yes Status: Acute (2) Cerebrovascular accident Current Visit: Yes Status: Acute 60-year old man with recent right MCA-distribution stroke and resultant left facial droop (insular stroke), with acute worsening of stroke symptoms in the setting of administration of lisinopril. Do not suspect a new stroke, rather, this event is likely secondary to hypoperfusion secondary to lisinopril in the sharan-stroke area. The contribution of taurine in this setting (a supplement that he is taking to reduce blood pressure) is unclear. Will ask for Cardiology input. For completeness, will get MRI brain to evaluate for new stroke (less suspicious ), and SELENA (as has been previously planned), to happen on Friday. Fine tuning of medication regimen for blood pressure control and cardiac monitoring (Holter as was planned) would be helpful. Continue ASA and statin. Will follow. Qualifiers: CVA mechanism: embolism Precerebral and cerebral artery: middle cerebral artery Laterality of affected vessel: right Qualified Code(s): I63.411 - Cerebral infarction due to embolism of right middle cerebral artery History of Present Illness Chief complaint: facial droop HPI: Mr. Greco is a 60 year old male who was seen yesterday for stroke (MRI- positive, right MCA-distribution stroke, likely throboembolic) and was discharged home on Holter monitoring (due to history of flutter, per patient report). He went home and took his Lisinopril medication and within few minutes noticed a facial droop - his noticed as well, and then while they were contemplating to come to the ER, the facial droop resolved (in about 5 minutes). He has been fine since then, but he came to the ER and was admitted for observation/evaluation. He also reports that he takes taurine (500 mg) at home to reduce blood pressure. His blood pressure at the ER was noted to be 160 /100, when his facial droop had resolved. Now he is back to baseline, and has no complaints. Past Med Surg Social Fam HX - Past Medical History Medical history: CVA, hypertension Psychiatric history: no psych history - Past Surgical History Surgical History: no surgical history - Social History Smoking Status: Never smoker Smokeless Tobacco Status: No Alcohol use: occasionally Drug use: none - Family History Father Hx Family Neurologic Disorders: Yes (CVA) Mother Hx Family Neuromuscular Disorders: Yes (CVA) Medications and Allergies Enalapril Maleate [Vasotec] 20 mg PO DAILY 07/19/16 [History] Ibuprofen [Advil] 200 mg PO Q6H PRN 07/19/16 [History] [place]-3/Dha/Epa/Fish Oil [Fish Oil 1,000 mg Softgel] 1 each PO DAILY 07/19/16 [ History] Taurine [Pure Taurine] 500 mg PO DAILY 07/19/16 [History] Aspirin Enteric Coated [Aspirin EC] 325 mg PO DAILY #30 tablet. 07/20/16 [Rx] Atorvastatin [Lipitor] 40 mg PO HS #30 tablet 07/20/16 [Rx] Allergies No Known Allergies Allergy (Verified 07/19/16 08:16) All Systems: A 10-system review of systems was performed and is negative for pertinent findings except as documented above in the HPI. - Constitutional Constitutional ROS IM: as per HPI - Neurological Neurological ROS: focal weakness (mild left facial weakness) Physical Examination - Vital Signs Vital Signs: Initial Vital Signs Temp Pulse Resp BP Pulse Ox 97.8 F 88 14 175/110 96 07/20/16 15:39 07/20/16 15:39 07/20/16 15:39 07/20/16 15:39 07/20/16 15:39 Vital Signs - 24 hr 07/20/16 15:39 07/20/16 15:48 07/20/16 16:08 Temperature 97.8 F Pulse Rate 88 80 Respiratory Rate 14 14 Blood Pressure 175/110 147/81 O2 Sat by Pulse Oximetry 96 97 96 07/20/16 16:42 07/20/16 17:43 07/20/16 18:39 Temperature Pulse Rate 80 67 Respiratory Rate 14 14 14 Blood Pressure 131/84 141/92 133/80 O2 Sat by Pulse Oximetry 96 95 07/20/16 19:39 07/20/16 22:41 07/21/16 03:22 Temperature 97.8 F 98.2 F 97.8 F Pulse Rate 60 67 51 Respiratory Rate 18 18 15 Blood Pressure 146/81 114/67 123/76 O2 Sat by Pulse Oximetry 97 95 96 07/21/16 06:39 07/21/16 10:57 Temperature 98.6 F 97.8 F Pulse Rate 60 62 Respiratory Rate 17 17 Blood Pressure 109/66 131/74 O2 Sat by Pulse Oximetry 95 95 - Neurologic Sensorimotor examination: intact Detailed motor examination: full strength in all major muscle groups Motor examination - right side: 5/5: deltoids, biceps, triceps, wrist flexion, wrist extension, shoe dyer, hip flexors, tibialis Anterior, quadriceps, toe extension (EHL), plantarflexion Motor examination - left side: 5/5: deltoids, biceps, triceps, wrist flexion, wrist extension, hip flexors, shoe dyer, quadriceps, tibialis Anterior, toe extension (EHL), plantarflexion Detailed sensory examination: intact Reflexes: Biceps: 3+, Triceps: 3+, Brachioradialis: 3+, Patella: 3+, Achilles: 3 + (mildly hyper-reflexic on the left) Mental Status Examination: awake, alert, oriented to person, oriented to place, oriented to time, follows commands appropriately, answers questions appropriately, no agnosia, no aphasia, no aproxia, lucid Cranial nerve examination: PERRL, EOMI, visual gamboa intact, corneal reflexes brisk symmetrically, sensory to face intact, mastication intact, no facial asymmetry is present (mild left facial droop), no dysarthria, hearing is intact symmetrically, soft palate elevates bilaterally upon phonation, gag reflex intact, flexes SCM and trapezius muscles symmetrically with full power, tongue protrudes midline, no atrophy or facial fasiculations present Cerebellar examination: no dysmetria, performs finger to nose and heel to harman symmetrically without ataxia, no gait ataxia, no truncal ataxia, no difficulty with rapid alternating movements Results - Laboratory Findings CBC and BMP: 07/21/16 03:12 07/21/16 03:12 Abnormal lab findings: Abnormal lab results MPV 8.3 fL (9.4-12.4) L 07/21/16 03:12 POC Glucose 111 (58-89) H 07/20/16 15:41 - Diagnostic Findings Additional findings: Chest X-Ray 07/20/16 15:51 IMPRESSION: Negative portable study. D/ / Nat Calero Cha, MD / Nat Calero Cha, MD Interpreting Provider: Nat Calero Cha, MD Head CT 07/20/16 15:51 IMPRESSION: Stable appearance of the brain with probable subacute infarct in the posterior right frontal lobe in the MCA distribution. No evidence of hemorrhagic transformation. No significant interval change is appreciated. D/ / Grupo Madrid MD / Grupo Madrid MD Interpreting Provider: Grupo Madrid MD Consult Discharge Plan - Plan Referrals: Placido Doyle MD [Primary Care Provider] -
--- NOTE | 2016-07-21 15:25 | Internal Med Progress Note ---
Date of Encounter: 07/21/16 Time of Encounter: 09:20 - Assessment and plan (1) Cerebrovascular accident Current Visit: Yes Status: Acute Assessment and plan: Patient was discharged yesterday after CVA. He went home on aspirin only. He had been discharged from this facility for approximately 30 minutes, he went home took a drink of Gatorade and took his blood pressure medicine and began having slurred speech and worsening left facial droop. Symptoms only lasted a few minutes and by the time he reached the emergency department his speech had cleared. Minimal left facial droop still remains. Blood pressure on arrival was 175/110 it appears that he was given pressor in the emergency department. His blood pressures now are in the 130s over 90s. We will continue to run her blood pressures and try to maintain around 130s. Patient was to see neurology outpatient tomorrow for a SELENA. We will do it here in the morning. Dr. Shelton will most likely see patient in the morning. He has no deficits other than a slight left facial droop. Telemetry Close monitoring of blood pressure Aspirin, statin, neuro checks Neurology consult MRI in the morning SELENA as planned Qualifiers: CVA mechanism: embolism Precerebral and cerebral artery: middle cerebral artery Laterality of affected vessel: right Qualified Code(s): I63.411 - Cerebral infarction due to embolism of right middle cerebral artery (2) Essential hypertension Current Visit: Yes Status: Chronic Assessment and plan: Maintain blood pressure in the 130s, per neurology if the blood pressure rises to 160s 170s, we need to divide the dose of lisinopril. Patient also reports that he is taking Taurine for blood pressure control. I plan a cardiology consult per neurology request to have this evaluated. He will also have a SELENA tomorrow Continue medications, plan as above for hypertension. (3) DVT prophylaxis Current Visit: No Status: Acute Assessment and plan: Patient was sent home only on aspirin after CVA. He is able to walk, PANDA hose. (4) Dysarthria Current Visit: Yes Status: Resolved Assessment and plan: Speech has cleared. Plan as above. - Time Spent With Patient less than 15 minutes - Subjective Interval history: She was seen and assessed at about 920 this morning. He is pleasant, alert, oriented. His speech is clear, strength is equal bilaterally upper and lower extremities. He does have very minimal left facial droop. All other facial movements are symmetrical. Tongue protrusion without deviation. Grasps are strong and equal, there is no pronator drift. He says that he was discharged from the hospital for about 30 minutes when he went home and took his blood pressure medication. Within a few minutes he noticed worsening facial droop and slurred speech again. He is brought back for evaluation to the emergency department where his blood pressure on arrival was 175/110. Repeat CT head showed subacute infarct in the posterior right frontal lobe in the MCA distribution, no hemorrhage. We will monitor his blood pressure closely. Neurology recommends keeping blood pressure around 130s and keeping dose of lisinopril the same. If blood pressure increases into the 160s to 170s, lisinopril dose should be divided into 2 equal doses. Patient also reports a stent taking Taurine for blood pressure. Neurology has requested that patient having evaluation by cardiology for this. - Constitutional Vitals: Temp Pulse Resp BP Pulse Ox 98.2 F 57 15 119/75 94 07/21/16 15:14 07/21/16 15:14 07/21/16 15:14 07/21/16 15:14 07/21/16 15:14 General appearance: Present: cooperative, A&O X 3, pleasant, no acute distress, answers questions appropriately - Head Head exam: Present: normal inspection - Eye Eye exam: Present: normal appearance, PERRL, conjuntiva pink. Absent: nystagmus - ENT ENT exam: Present: mucous membranes moist, normal exam - Neck Neck exam general surgery: Present: normal inspection. Absent: lymphadenopathy , tenderness - Respiratory Respiratory exam: Present: CTAB. Absent: rales, respiratory distress, rhonchi, stridor, wheezes - Cardiovascular Cardiovascular exam: Present: RRR, +S1, +S2. Absent: diastolic murmur, systolic murmur - GI/Abdominal GI/Abdominal exam: Present: normal bowel sounds, soft. Absent: distended, firm , tenderness - Extremities Exam Extremities exam: Present: normal capillary refill, pedal edema, radial pulses palpable and symetrical. Absent: tenderness, warm - Neurological Exam Neurological exam: Present: oriented X3, no focal deficits, strengths equal and symetr throughout, facial droop. Absent: motor sensory deficit, pronater drift , speech deficit - Skin Skin exam: Present: dry, normal color, warm Internal Medicine: Result - Labs CBC & Chem 7: 07/21/16 03:12 07/21/16 03:12 Labs: Short CBC 07/21/16 Range/Units 03:12 WBC 5.0 (4.3-11.1) K/mcL Hgb 14.5 (12.9-16.9) g/dL Hct 42.2 (37.5-50.1) % Plt Count 192 (140-400) K/mcL Neutrophils # 2.4 (1.6-8.9) K/mcL BMP 07/21/16 03:12 Sodium 139 Potassium 4.1 Chloride 107 Carbon Dioxide 23 BUN 17 Creatinine 0.95 Glucose 95 Calcium 9.2 Cardiac Enzymes 07/21/16 Range/Units 03:12 Troponin I 0.02 (0-0.03) ng/mL - ABG Interpretation ABG results: PT/INR, D-dimer PT 10.9 Seconds (9.4-12.1) 07/20/16 16:18 Consult Discharge Plan - Plan Referrals: Placido Doyle MD [Primary Care Provider] -
[2016-07-22 03:52] LABS: Basophils % 0.4 %; Eosinophils # 0.1 K/mcL (0.0-0.6); Eosinophils % 1.5 %; Hematocrit 41.8 % (37.5-50.1); Hemoglobin 14.5 g/dL (12.9-16.9); Immature Granulocytes % 0.2 % (0-4); Lymphocytes # 2.2 K/mcL (0.6-4.6); Mean Corpuscular HGB Conc 34.7 g/dL (31.6-35.5); Mean Corpuscular Volume 92.3 fL (83.0-100.0); Mean Platelet Volume 8.5 fL (9.4-12.4); Monocytes # 0.5 K/mcL (0.0-1.3); Monocytes % 8.6 %; Neutrophils # 2.5 K/mcL (1.6-8.9); Platelet Count 183 K/mcL (140-400); Red Blood Count 4.53 M/mcL (4.19-5.50); Red Cell Distribution Width 11.9 % (11.5-14.5); Segmented Neutrophils % 48.3 %
[2016-07-22 04:03] LABS: BUN/Creatinine Ratio 19 (6-26); Blood Urea Nitrogen 18 mg/dL (8-26); Carbon Dioxide 20 mEq/L (19-29); Chloride 108 mEq/L (98-109); Sodium 137 mEq/L (136-145); eGFR For African Americans > 60 (> 60)
[2016-07-22 04:04] LABS: Calcium 9.2 mg/dL (8.6-10.8); Glucose 96 mg/dL (70-99); Osmolality,Calculated 286 (280-300); eGFR For Non-African Americans > 60 (> 60)
[2016-07-22] MEDS: Lisinopril 20 MG TABLET PO SCH (09:41)
[2016-07-22] MEDS: Aspirin 325 MG TABLET PO SCH (09:41)
--- NOTE | 2016-07-22 09:41 | Electrocardiograph Report ---
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
--- NOTE | 2016-07-22 09:43 | Electrocardiograph Report ---
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
[2016-07-22] MEDS ORDERED: *HR* LORazepam 2 MG/ML VIAL IVP ONE (09:49)
--- NOTE | 2016-07-22 09:49 | Cardiology Consult Note ---
Date of Encounter: 07/22/16 Time of Encounter: 08:30 Assessment and Plan (1) Cerebrovascular accident Current Visit: Yes Status: Acute Patient was recently diagnosed with CVA 4 days ago. Neurology requested consultation by cardiology to perform SELENA to look for cardiac causes for CVA. Plan: SELENA ordered scheduled for today. There is also question of Taurine use with lisinopril possibly causing cerebral hypoperfusion. Patient stated he took his lisinopril 2 days ago while at home just a few minutes later begin having repeat of symptoms of dysarthria. Unsure at this time in his medications are a cause of his symptoms of CVA since he has been on them for such a long time. Patient also states he has not had severe drops blood pressure at home to suggest this. Patient states his blood pressures ranging between 110's and as high as 160s with a peak blood pressure 175/110 2 days ago which patient states is unusual. More recommendations to follow after SELENA. Patient most likely will need loop recorder. Qualifiers: CVA mechanism: embolism Precerebral and cerebral artery: middle cerebral artery Laterality of affected vessel: right Qualified Code(s): I63.411 - Cerebral infarction due to embolism of right middle cerebral artery Discussion w patient/family: The assessment and plan as outlined above was discussed with the patient and/or family members who expressed understanding and agreement. All questions were answered. Thank you for involving us in the care of your patient. Please call with any questions. History of Present Illness Consult date: 07/21/16 Requesting physician: Chani Crenshaw Consult reason: CVA; SELENA request, investigate taurine and lisinopril combo use Chief complaint: Recurrent dysarthria, and left facial droop History of present illness: Mr. Greco is a 60 year old male with recent history of CVA, and history of hypertension. Consulted for SELENA to investigate cardiac cause for CVA, as well as combination use of taurine in with lisinopril. Patient was diagnosed with CVA 4 days ago and was admitted. Symptoms of dysarthria and left-sided facial droop pain resolved and the patient was discharged 2 days ago. Patient went home and states he took his fosinopril and moments later is dysarthria returned. Patient was readmitted. Neurology request SELENA. Today patient is to well. Currently asymptomatic. Patient denies dysarthria. Patient's left-sided facial droop corner of mouth is slightly noticeable with smile. Patient has no complaints and denies fevers, chills, lightheadedness, dizziness , loss consciousness, chest pain, or palpitations today, shortness of breath, abdominal pain, numbness and tingling in extremities and any other focal neurologic deficits. Past Med Surg Social Fam HX - Past Medical History Attestation: Yes The following information was validated with the patient. Source: patient Medical history: CVA, hypertension Psychiatric history: no psych history - Past Surgical History Surgical History: no surgical history - Social History Smoking Status: Never smoker Smokeless Tobacco Status: No Alcohol use: occasionally Drug use: none - Family History Father Hx Family Neurologic Disorders: Yes (CVA) Mother Hx Family Neuromuscular Disorders: Yes (CVA) Medications and Allergies Enalapril Maleate [Vasotec] 20 mg PO DAILY 07/19/16 [History] Ibuprofen [Advil] 200 mg PO Q6H PRN 07/19/16 [History] [place]-3/Dha/Epa/Fish Oil [Fish Oil 1,000 mg Softgel] 1 each PO DAILY 07/19/16 [ History] Taurine [Pure Taurine] 500 mg PO DAILY 07/19/16 [History] Aspirin Enteric Coated [Aspirin EC] 325 mg PO DAILY #30 tablet. 07/20/16 [Rx] Atorvastatin [Lipitor] 40 mg PO HS #30 tablet 07/20/16 [Rx] Allergies No Known Allergies Allergy (Verified 07/19/16 08:16) All Systems Review: A 10-system review of systems was performed and is negative for pertinent findings except as documented above in the HPI. - EENT Eyes: no blurred vision, no loss of vision, no pain Physical Examination Vital Signs, Last 4 Hours Temp Pulse Resp BP Pulse Ox 07/22/16 09:36 97.9 F 62 14 132/77 07/22/16 07:21 97.6 F 57 14 96 General: Conversant, No Apparent Distress HEENT: Atraumatic, Normocephaly, Mucus Membranes Moist Neck: No JVD, Normal carotid pulses Cardiac: Reg Rate and Rhythm, Normal S1 and S2, No Murmur Lungs: Normal Breath Sounds, No Wheeze, Rales, Rhonchi Neuro: Alert and responsive, Other (mild droop of the left corner mouth) Abdomen: Soft, Non-Tender Skin: No rashes noted on visualized skin Musculoskeletal: No Chest Wall Tenderness Extremities: No Clubbing, No Cyanosis, No Edema, Normal Pulses Results 07/22/16 02:50 07/22/16 02:50 Lab Results 07/22/16 07/22/16 02:50 02:50 WBC 5.2 Hgb 14.5 Hct 41.8 Plt Count 183 Sodium 137 Potassium 4.0 Chloride 108 Carbon Dioxide 20 BUN 18 Creatinine 0.97 Glucose 96 Calcium 9.2 - Imaging and Cardiology Chest Xray: report reviewed - EKG Interpretation EKG results cardiology: personally reviewed, normal ECG, sinus rhythm Consult Discharge Plan - Plan Referrals: Placido Doyle MD [Primary Care Provider] -
[2016-07-22] MEDS ORDERED: *HR* LORazepam 2 MG/ML VIAL ONE (09:55)
--- NOTE | 2016-07-22 12:58 | Neurology Progress Note ---
Date of Encounter: 07/22/16 Time of Encounter: 12:49 Assessment and Plan (1) Cerebrovascular accident Current Visit: Yes Status: Acute Patient has right MCA M2 branch severe stenosis, likely the cause of the the stroke. Is waiting to accomplish SELENA to rule out embolic source. Patient has been experiencing fluctuating left facial droop but repeat MRI of brain showed no significant changes of stroke size. This fluctuating left facial droop may be related to fluctuating blood pressure. Will try to avoid aggressive antihypertensive therapy during acute phase of stroke 10-14 days. Will discuss the case with [facility] passenger car inspector for possibility of endovascular treatment for severe right proximal M2 branch stenosis. Will keep him on Aspirin 325mg daily and statin therapy. Await SELENA tomorrow. If endovascular intervention is indicated then will ship him to [facility]. If not, will pursue risk factor reduction and keep him on Aspirin 325mg daily Qualifiers: CVA mechanism: stenosis Precerebral and cerebral artery: middle cerebral artery Laterality of affected vessel: right Qualified Code(s): I63.511 - Cerebral infarction due to unspecified occlusion or stenosis of right middle cerebral artery Subjective Principal diagnosis: CVA Interval history: Patient seen and examined. Patient is feeling well, no significant neurological discomforts. MRI of brain completed which showed no significant change in the patient's recent acute right MCA infarct. no new infarct or acute intracranial hemorrhage. CTA of brain showed severe focal stenosis in the proximal right M2 branch, otherwise unremarkable CTA of the head. Objective - Constitutional Vitals: Temp Pulse Resp BP Pulse Ox 97.6 F 64 13 114/74 95 07/22/16 11:07 07/22/16 11:07 07/22/16 11:07 07/22/16 11:07 07/22/16 11:07 - Neurological Exam Sensorimotor examination: Present: intact Motor Examination: Present: full strength in all major muscle groups Motor examination - right side: 5/5: deltoids, biceps, triceps, wrist flexion, wrist extension, facility operations manager, hip flexors, tibialis Anterior, quadriceps, toe extension (EHL), plantarflexion Motor examination - left side: 5/5: deltoids, biceps, triceps, wrist flexion, wrist extension, hip flexors, facility operations manager, quadriceps, tibialis Anterior, toe extension (EHL), plantarflexion Sensation intact: Present: intact Mental Status Examination: Present: awake, alert, oriented to person, oriented to place, oriented to time, follows commands appropriately, answers questions appropriately, no agnosia, no aphasia, no aproxia, lucid Cranial nerve examination: Present: PERRL, EOMI, visual gamboa intact, corneal reflexes brisk symmetrically, sensory to face intact, mastication intact, no facial asymmetry is present (mild left facial droop), no dysarthria, hearing is intact symmetrically, soft palate elevates bilaterally upon phonation, gag reflex intact, flexes SCM and trapezius muscles symmetrically with full power, tongue protrudes midline, no atrophy or facial fasiculations present Cerebellar examination: Present: no dysmetria, performs finger to nose and heel to harman symmetrically without ataxia, no gait ataxia, no truncal ataxia, no difficulty with rapid alternating movements Results - Laboratory Findings CBC and BMP: 07/22/16 02:50 07/22/16 02:50 Abnormal lab findings: Abnormal lab results MPV 8.5 fL (9.4-12.4) L 07/22/16 02:50 POC Glucose 111 (58-89) H 07/20/16 15:41 Consult Discharge Plan - Plan Referrals: Placido Doyle MD [Primary Care Provider] -
[2016-07-22] MEDS ORDERED: 0.9 % Sodium Chloride 500 ML IVC ONE (14:18)
[2016-07-22] MEDS ORDERED: Tetracaine/Benzocaine/Butamben 200MG/SPRAY (100SPY/BOT) MM ONE (14:18)
[2016-07-22] MEDS: *HR* FentaNYL (PF) 100 MCG/2 ML VIAL IVP PRN ×3 (15:00→15:10)
[2016-07-22] MEDS: *HR* Midazolam HCl 5 MG/5 ML VIAL IVP PRN ×3 (15:00→15:10)
--- NOTE | 2016-07-22 16:26 | Internal Med Progress Note ---
Date of Encounter: 07/22/16 Time of Encounter: 08:55 - Assessment and plan (1) Cerebrovascular accident Current Visit: Yes Status: Acute Assessment and plan: Patient was discharged after CVA on 07/21. He went home on aspirin only. He had been discharged from this facility for approximately 30 minutes, he went home took a drink of Gatorade and took his blood pressure medicine and began having slurred speech and worsening left facial droop. Symptoms only lasted a few minutes and by the time he reached the emergency department his speech had cleared. Minimal left facial droop still remains, otherwise he is neurologically intact. Patient has right M2 branches severe stenosis, which was likely the cause of the stroke. Dr. Elaine and I spoke with [facility] neurology today regarding treatment options. Patient will continue on aspirin 325 mg, as well as Plavix 75 mg by recommendation of Dr. Elaine. SELENA today showed no evidence of intracardiac thrombus or vegetation. Normal systolic function, increased LV wall thickness. No significant valve dysfunction and no PFO. There is grade 1-2 plaquing of the thoracic aorta. She had repeat MRI today. There is no significant change in the right MCA infarcts and there is no new infarct or acute intracranial hemorrhage. Cardiology and neurology will continue to monitor. Telemetry Close monitoring of blood pressure Aspirin, statin, Plavix 75 mg. Neurology and cardiology following Qualifiers: CVA mechanism: stenosis Precerebral and cerebral artery: middle cerebral artery Laterality of affected vessel: right Qualified Code(s): I63.511 - Cerebral infarction due to unspecified occlusion or stenosis of right middle cerebral artery (2) Essential hypertension Current Visit: Yes Status: Chronic Assessment and plan: Continue to monitor blood pressure continue medications. (3) Dysarthria Current Visit: Yes Status: Resolved (4) DVT prophylaxis Current Visit: No Status: Acute Assessment and plan: Patient was sent home only on aspirin after CVA. He is able to walk, PANDA hose. Plavix has been added. - Subjective Interval history: Patient was seen and assessed this morning at 8:55 AM. is at bedside. Resident who is with cardiology was at bedside discussing plan of care with patient. Patient had T E this afternoon. Per MRI he has a right MCA M2 branch severe stenosis, which was likely the cause of his stroke. Dr. Elaine and I spoke with [facility] neurology today regarding treatment options. Patient was placed on aspirin 325 mg daily, as well as Plavix 75 mg daily by recommendation of Dr. Elaine. Patient is alert and oriented and remains deficit 3. He still has small droop to left mouth. Otherwise he remains intact. - Constitutional Vitals: Temp Pulse Resp BP Pulse Ox 97.8 F 72 16 132/83 98 07/22/16 14:41 07/22/16 14:41 07/22/16 14:41 07/22/16 14:41 07/22/16 14:41 General appearance: Present: cooperative, A&O X 3, pleasant, no acute distress, answers questions appropriately - Head Head exam: Present: normal inspection - Eye Eye exam: Present: normal appearance, conjuntiva pink - ENT ENT exam: Present: mucous membranes moist, normal exam - Neck Neck exam general surgery: Present: normal inspection. Absent: lymphadenopathy , tenderness - Respiratory Respiratory exam: Present: CTAB. Absent: rales, respiratory distress, rhonchi, stridor, wheezes - Cardiovascular Cardiovascular exam: Present: RRR, +S1, +S2. Absent: diastolic murmur, systolic murmur - Expanded Cardiovascular Exam Peripheral pulses: 2+: Dorsalis Pedis (L) PM, Dorsalis Pedis (R) PM - Extremities Exam Extremities exam: Present: normal inspection, warm, radial pulses palpable and symetrical. Absent: pedal edema, tenderness - Neurological Exam Neurological exam: Present: alert, oriented X3, no focal deficits, strengths equal and symetr throughout, facial droop. Absent: altered, motor sensory deficit, pronater drift, speech deficit - Skin Skin exam: Present: dry, intact, normal color, warm. Absent: rash Internal Medicine: Result - Labs CBC & Chem 7: 07/22/16 02:50 07/22/16 02:50 Labs: Short CBC 07/22/16 Range/Units 02:50 WBC 5.2 (4.3-11.1) K/mcL Hgb 14.5 (12.9-16.9) g/dL Hct 41.8 (37.5-50.1) % Plt Count 183 (140-400) K/mcL Neutrophils # 2.5 (1.6-8.9) K/mcL BMP 07/22/16 02:50 Sodium 137 Potassium 4.0 Chloride 108 Carbon Dioxide 20 BUN 18 Creatinine 0.97 Glucose 96 Calcium 9.2 - ABG Interpretation ABG results: PT/INR, D-dimer PT 10.9 Seconds (9.4-12.1) 07/20/16 16:18 - Impressions Impressions Brain MRI 07/22/16 09:30 IMPRESSION: 1. No significant change in the patient's recent acute right MCA infarcts. 2. No new infarct or acute intracranial hemorrhage. D/ / 07/22/2016 11:57:43 Andreas Miller MD / damien Interpreting Provider: Andreas Miller MD Consult Discharge Plan - Plan Referrals: Placido Doyle MD [Primary Care Provider] - 07/24/16 4:00 pm
[2016-07-23 06:18] LABS: Basophils % 0.4 %; Eosinophils # 0.1 K/mcL (0.0-0.6); Eosinophils % 1.9 %; Hematocrit 41.3 % (37.5-50.1); Hemoglobin 14.5 g/dL (12.9-16.9); Immature Granulocytes % 0.2 % (0-4); Lymphocytes # 1.9 K/mcL (0.6-4.6); Lymphocytes % 36.2 %; Mean Corpuscular HGB Conc 35.1 g/dL (31.6-35.5); Mean Corpuscular Hemoglobin 32.2 pg (28.0-33.3); Mean Corpuscular Volume 91.8 fL (83.0-100.0); Mean Platelet Volume 8.4 fL (9.4-12.4); Monocytes # 0.4 K/mcL (0.0-1.3); Neutrophils # 2.8 K/mcL (1.6-8.9); Platelet Count 176 K/mcL (140-400); Red Cell Distribution Width 11.9 % (11.5-14.5); Segmented Neutrophils % 53.3 %
[2016-07-23 06:37] LABS: BUN/Creatinine Ratio 18 (6-26); Blood Urea Nitrogen 17 mg/dL (8-26); Calcium 9.4 mg/dL (8.6-10.8); Carbon Dioxide 24 mEq/L (19-29); Chloride 106 mEq/L (98-109); Glucose 90 mg/dL (70-99); Osmolality,Calculated 283 (280-300); Potassium 4.7 mEq/L (3.5-4.5); Sodium 136 mEq/L (136-145); eGFR For African Americans > 60 (> 60); eGFR For Non-African Americans > 60 (> 60)
[2016-07-23] MEDS: Aspirin 325 MG TABLET PO SCH (08:00)
[2016-07-23] MEDS: Lisinopril 20 MG TABLET PO SCH (08:00)
--- NOTE | 2016-07-23 09:11 | Internal Med Progress Note ---
Date of Encounter: 07/23/16 Time of Encounter: 08:40 - Assessment and plan (1) Cerebrovascular accident Current Visit: Yes Status: Acute Qualifiers: CVA mechanism: stenosis Precerebral and cerebral artery: middle cerebral artery Laterality of affected vessel: right Qualified Code(s): I63.511 - Cerebral infarction due to unspecified occlusion or stenosis of right middle cerebral artery (2) Essential hypertension Current Visit: Yes Status: Chronic (3) DVT prophylaxis Current Visit: No Status: Acute (4) Dysarthria Current Visit: Yes Status: Resolved - Subjective Interval history: 1-year-old male being managed for acute ischemic CVA in the right middle cerebral artery segment with M2 stenosis. Repeat woke up including brain MRI, and transesophageal echocardiogram has been negative. Patient is seen and evaluated at the bedside He denies any new neurologic deficits. He is being followed by cardiology and neurology. Plan for cardiology is to insert a loop recorder prior to discharge. - Constitutional Vitals: Temp Pulse Resp BP Pulse Ox 97.8 F 60 16 116/74 94 07/23/16 06:53 07/23/16 06:53 07/23/16 06:53 07/23/16 06:53 07/23/16 06:53 General appearance: Present: cooperative, A&O X 3, pleasant, no acute distress, answers questions appropriately - Head Head exam: Present: atraumatic, normocephalic - Eye Eye exam: Present: PERRL, conjuntiva pink, sclera anicteric Pupils: Present: PERRL - Neck Neck exam general surgery: Present: supple, trachea midline. Absent: lymphadenopathy - Respiratory Respiratory exam: Present: CTAB. Absent: accessory muscle use, rales, rhonchi, wheezes - Cardiovascular Cardiovascular exam: Present: RRR, +S1, +S2. Absent: diastolic murmur, gallop, rubs, systolic murmur - GI/Abdominal GI/Abdominal exam: Present: normal bowel sounds, soft, no peritoneal signs. Absent: distended, tenderness - Extremities Exam Extremities exam: Present: warm, radial pulses palpable and symetrical. Absent : calf tenderness, cyanotic, pedal edema - Neurological Exam Neurological exam: Present: alert, CN II-XII intact, oriented X3, no focal deficits. Absent: pronater drift, facial droop, speech deficit - Skin Skin exam: Present: dry, intact Internal Medicine: Result - Labs CBC & Chem 7: 07/23/16 05:04 07/23/16 05:04 Labs: Short CBC 07/23/16 Range/Units 05:04 WBC 5.2 (4.3-11.1) K/mcL Hgb 14.5 (12.9-16.9) g/dL Hct 41.3 (37.5-50.1) % Plt Count 176 (140-400) K/mcL Neutrophils # 2.8 (1.6-8.9) K/mcL BMP 07/23/16 05:04 Sodium 136 Potassium 4.7 H Chloride 106 Carbon Dioxide 24 BUN 17 Creatinine 0.97 Glucose 90 Calcium 9.4 - ABG Interpretation ABG results: PT/INR, D-dimer PT 10.9 Seconds (9.4-12.1) 07/20/16 16:18 - Impressions Impressions Brain MRI 07/22/16 09:30 IMPRESSION: 1. No significant change in the patient's recent acute right MCA infarcts. 2. No new infarct or acute intracranial hemorrhage. D/ / 07/22/2016 11:57:43 Andreas Miller MD / damien Interpreting Provider: Andreas Miller MD Consult Discharge Plan - Plan Referrals: Placido Doyle MD [Primary Care Provider] - 07/24/16 4:00 pm
--- NOTE | 2016-07-23 10:41 | Cardiology Progress Note ---
Date of Encounter: 07/23/16 Time of Encounter: 10:36 Assessment and Plan (1) Cerebrovascular accident Current Visit: Yes Status: Acute Seen by neurology yesterday. Patient has right MCA M2 branch severe stenosis, likely the cause of the the stroke per neuro. SELNEA yesterday ruled out embolic source. No significant findings. Per neuro, try to avoid aggressive antihypertensive therapy during acute phase of stroke 10-[address] Elaine--case was discussed with [facility] flight surgeon for possibility of endovascular treatment for severe right proximal M2 branch stenosis. No endovascular intervention was recommended by [facility]. Continue ASA, Plavix, Statin. Since we have explainable cause of CVA, loop recorder is no longer warranted. Cardiology signing off. Reconsult PRN. No cardiology outpt follow-up is warranted. Qualifiers: CVA mechanism: stenosis Precerebral and cerebral artery: middle cerebral artery Laterality of affected vessel: right Qualified Code(s): I63.511 - Cerebral infarction due to unspecified occlusion or stenosis of right middle cerebral artery Discussion w patient/family: The assessment and plan as outlined above was discussed with the patient and/or family members who expressed understanding and agreement. All questions were answered. Thank you for involving us in the care of your patient. Please call with any questions. I will discuss all the above with Dr. Jason Siddiqi and make changes as necessary. Subjective Principal diagnosis: CVA Interval history: No acute complaints this AM. Objective Vital Signs, Last 4 Hours Temp Pulse Resp BP Pulse Ox 07/23/16 06:53 97.8 F 60 16 116/74 94 Vital Signs Temp Pulse Resp BP Pulse Ox 07/23/16 06:53 97.8 F 60 16 116/74 94 07/23/16 04:52 97.5 F L 50 16 116/70 97 07/22/16 23:06 97.5 F L 58 15 113/68 96 07/22/16 20:30 97 07/22/16 19:50 97.4 F L 71 15 117/71 94 07/22/16 17:06 65 16 114/76 95 07/22/16 16:36 98.3 F 60 14 102/62 94 07/22/16 14:41 97.8 F 72 16 132/83 98 07/22/16 11:07 97.6 F 64 13 114/74 95 Intake and Output 07/22/16 07/23/16 07/23/16 23:59 07:59 15:59 Intake Total 300 / 300 Balance 300 / 300 Intake: Oral 300 / 300 Other: Meal NPO Weight 82.554 kg Patient Weight 07/23/16 23:59 Weight 82.554 kg General: Conversant, No Apparent Distress HEENT: Atraumatic, Normocephaly, Mucus Membranes Moist Neck: No JVD, Normal carotid pulses Cardiac: Reg Rate and Rhythm, Normal S1 and S2, No Murmur Lungs: Normal Breath Sounds, No Wheeze, Rales, Rhonchi Neuro: Alert and responsive, No focal deficits noted Abdomen: Soft, Non-Tender Skin: No rashes noted on visualized skin Musculoskeletal: No Chest Wall Tenderness Extremities: No Clubbing, No Cyanosis, No Edema, Normal Pulses Results 07/23/16 05:04 07/23/16 05:04 Lab Results 07/23/16 07/23/16 05:04 05:04 WBC 5.2 Hgb 14.5 Hct 41.3 Plt Count 176 Sodium 136 Potassium 4.7 H Chloride 106 Carbon Dioxide 24 BUN 17 Creatinine 0.97 Glucose 90 Calcium 9.4 Short CBC 07/23/16 Range/Units 05:04 WBC 5.2 (4.3-11.1) K/mcL Hgb 14.5 (12.9-16.9) g/dL Hct 41.3 (37.5-50.1) % Plt Count 176 (140-400) K/mcL Neutrophils # 2.8 (1.6-8.9) K/mcL BMP 07/23/16 Range/Units 05:04 Sodium 136 (136-145) mEq/L Potassium 4.7 H (3.5-4.5) mEq/L Chloride 106 (98-109) mEq/L Carbon Dioxide 24 (19-29) mEq/L BUN 17 (8-26) mg/dL Creatinine 0.97 (0.72-1.25) mg/dL Glucose 90 (70-99) mg/dL Calcium 9.4 (8.6-10.8) mg/dL Impressions Brain MRI 07/22/16 09:30 IMPRESSION: 1. No significant change in the patient's recent acute right MCA infarcts. 2. No new infarct or acute intracranial hemorrhage. D/ /22/2016 11:57:43 Andreas Miller MD / damien Interpreting Provider: Andreas Miller MD Active Medications Acetaminophen (Tylenol) 650 mg PO Q6HR PRN PRN Reason: Mild Pain (1-3) Stop: 01/19/17 18:47 Acetaminophen/Hydrocodone Bitart ([place] 5-325 Mg) 1 tab PO Q4HR PRN PRN Reason: moderate to severe pain Stop: 01/19/17 18:47 Aspirin (Aspirin) 325 mg PO DAILY [facility] Stop: 01/20/17 09:01 Last Admin: 07/23/16 08:00 Dose: 325 mg Atorvastatin Calcium (Lipitor) 40 mg PO HS [facility] Stop: 01/19/17 21:01 Last Admin: 07/22/16 20:27 Dose: 40 mg Clopidogrel Bisulfate (Plavix) 75 mg PO DAILY [facility] Stop: 01/21/17 13:16 Last Admin: 07/23/16 08:00 Dose: 75 mg Lisinopril (Zestril) 20 mg PO DAILY RICHELLE PRN Reason: Protocol Stop: 01/20/17 09:01 Last Admin: 07/23/16 08:00 Dose: 20 mg Naloxone HCl (Narcan) 0.4 mg IVP Q2MIN PRN PRN Reason: Opioid Reversal Stop: 01/19/17 18:47 Omeprazole (Prilosec) 20 mg PO DAILY@0630 RICHELLE PRN Reason: Protocol Stop: 01/20/17 06:31 Last Admin: 07/23/16 06:24 Dose: Not Given Ondansetron HCl (Zofran) 4 mg IVP Q8HR PRN PRN Reason: Nausea And Vomiting Stop: 01/19/17 18:47 - Imaging and Cardiology Echo: report reviewed - EKG Interpretation EKG results cardiology: other (24 hour tele AVG HR 60, SR, no significant pauses or arrhythmias noted.) Consult Discharge Plan - Plan Referrals: Placido Doyle MD [Primary Care Provider] - 07/24/16 4:00 pm
[2016-07-23 15:05] VITALS: BP 102/65
--- NOTE | 2016-07-23 15:22 | Discharge Summary ---
Date of Encounter: 07/23/16 Time of Encounter: 15:22 - Discharge Diagnosis (1) Cerebrovascular accident Priority: Primary Status: Acute Qualifiers: CVA mechanism: stenosis Precerebral and cerebral artery: middle cerebral artery Laterality of affected vessel: right Qualified Code(s): I63.511 - Cerebral infarction due to unspecified occlusion or stenosis of right middle cerebral artery (2) Essential hypertension Priority: Secondary Status: Chronic (3) DVT prophylaxis Priority: Primary Status: Acute (4) Dysarthria Priority: Secondary Status: Resolved - Discharge Medications Prescriptions: Clopidogrel [Plavix] 75 mg PO DAILY #30 tablet Home Medications: Enalapril Maleate [Vasotec] 20 mg PO DAILY 07/19/16 [History] [place]-3/Dha/Epa/Fish Oil [Fish Oil 1,000 mg Softgel] 1 each PO DAILY 07/19/16 [ History] Taurine [Pure Taurine] 500 mg PO DAILY 07/19/16 [History] Aspirin Enteric Coated [Aspirin EC] 325 mg PO DAILY #30 tablet. 07/20/16 [Rx] Atorvastatin [Lipitor] 40 mg PO HS #30 tablet 07/20/16 [Rx] Clopidogrel [Plavix] 75 mg PO DAILY #30 tablet 07/23/16 [Rx] Allergies/Adverse Reactions: Allergies No Known Allergies Allergy (Verified 07/19/16 08:16) Procedures/tests Complete & Pending: Procedures Performed prior 72 hours Category Date Time Status MR head/brain wo con [MR] Routine MRI 07/22/16 09:30 Completed ECG 12 lead ECG [ECG] Routine Y 07/20/16 15:42 Completed ECG 12 lead ECG [ECG] Routine Y 07/20/16 15:42 Completed EV SELENA transesophageal echo Routine Y 07/22/16 09:22 Completed Date of admission: 07/20/16 18:05 Primary care physician: Placido Doyle MD Consults: 07/21/16 07:28 Consult to Neurology [CONS] Routine Consulting Provider: [facility] Reason for Consult: recent CVA, discharged home. Pt returns last evening with dysarthria and worsening facial droop. Subacute infarct. Call Completed: No 07/21/16 11:35 Consult to Cardiology [CONS] Routine Comment: Consulting Provider: Cardiology [place] Reason for Consult: Neuro requesting SELENA. Pt is also taking taurine for blood pressure, neuro is requesting evaluation for this, as well. CVA with repeat admission for symptoms after taking Lisinopril. Please see Friday. Time Notified: 11:37 Call Completed: Yes Discharging clinician: Michael Grajeda Anticipated date of discharge: 07/23/16 - Patient Status Disposition: Home, Self-Care Condition: Good Functional capacity at discharge: independent ambulation Overall status at discharge: patient is back to baseline - Discharge Instructions Instructions: Clopidogrel (By mouth), Ischemic Stroke (DC), Chronic Hypertension (DC) Follow Up With: Antoinette Elaine MD [Partnered Physician] - 08/23/16 10:45 am Placido Doyle MD [Primary Care Provider] - 07/24/16 4:00 pm - Diet and Activity Activity: resume usual activities as tolerated Diet: low fat, low cholesterol, low salt diet Interval History: See below Hospital course: Mr. Greco is a 60 year old male who was admitted and being managed for acute ischemic CVA in the right middle cerebral artery segment with M2 stenosis. Patient represented same day he was discharged with recurrent dysarthria. Repeat woke up including brain MRI, and transesophageal echocardiogram has been negative. Cardiology and neurology was consulted, recommendations were to add Plavix to his ASA . SELENA was recommended by cardiology, report was unremarkable Contact was made with [facility] life insurance sales agent for possibility of endovascular treatment for severe right proximal M2 branch stenosis. No endovascular intervention was recommended Patient is seen and evaluated at the bedside, hemodynamically stable with no neurologic deficits he is clinically stable to be discharged home on current medications His blood pressure is controlled for age. Follow up with PCP/neurology as out-patient - Time Spent with Patient Total time spent providing and/or coordinating discharge services: Less than 30 minutes - Constitutional Vitals: Temp Pulse Resp BP Pulse Ox 98.3 F 62 16 102/65 94 07/23/16 15:04 07/23/16 15:04 07/23/16 15:04 07/23/16 15:04 07/23/16 15:04 General appearance: Present: cooperative, A&O X 3, pleasant, no acute distress, answers questions appropriately - Head Head exam: Present: atraumatic, normocephalic - Eye Eye exam: Present: PERRL, conjuntiva pink, sclera anicteric Pupils: Present: PERRL - Neck Neck exam general surgery: Present: supple, trachea midline. Absent: lymphadenopathy - Respiratory Respiratory exam: Present: CTAB. Absent: accessory muscle use, rales, rhonchi, wheezes - Cardiovascular Cardiovascular exam: Present: RRR, +S1, +S2. Absent: diastolic murmur, gallop, rubs, systolic murmur - GI/Abdominal GI/Abdominal exam: Present: normal bowel sounds, soft, no peritoneal signs. Absent: distended, tenderness - Extremities Exam Extremities exam: Present: warm, radial pulses palpable and symetrical. Absent : calf tenderness, cyanotic, pedal edema - Neurological Exam Neurological exam: Present: alert, CN II-XII intact, oriented X3, no focal deficits. Absent: pronater drift, facial droop, speech deficit - Skin Skin exam: Present: dry, intact - Stroke Contraindication Rehab Services Not Assessed: Symptoms Resolved
== END 2016-07-23 15:43 | disposition home or self-care (01) ==
LOC: EMEROO 15:35 → 3BNU 15:35 → SUATTDRO 18:05 → 3BNU 19:39
PROVIDERS: ADMIT Internal Medicine; ATTEND Internal Medicine